=== PATIENT | female | born 1940 | race Caucasian/White ===

== ENCOUNTER 2018-04-29 21:01 | Emergency (ER) | payer OTHER ==
[2018-04-29 21:06] VITALS: BMI 18.3
--- NOTE | 2018-04-29 23:59 | PDOC ---
*Physical Exam - Vital Signs Last Vital Signs Temp Pulse Resp BP Pulse Ox 97.9 F 74 18 166/62 98 04/29/18 21:03 04/29/18 21:03 04/29/18 21:03 04/29/18 21:03 04/29/18 21:03 ED Treatment Course - LABORATORY CBC & Chemistry Diagram: 04/30/18 00:17 04/30/18 00:17 Medical Decision Making - Medical Decision Making 04/29/18 23:54 Ms Sarmiento is a 77 yo F with HTN, HLD, CAD, CVA, subclavian steal syndrome who presents to the ER with a complaint of elevated blood pressure This am, pt had funny feeling in her head No pain No chest pain, diaphoresis Spoke with neighbor who recommended that she take her blood pressure every hour Pt took blood pressure and noted it was elevated this evening Laboratory Tests 04/30/18 00:17 Creatine Kinase 104 Troponin I < 0.02 Labs nml Pt seen by Midlevel Provider under my direct supervision Ancillary studies reviewed I agree with plan as outlined by Midlevel Provider *DC/Admit/Observation/Transfer Diagnosis at time of Disposition: Paresthesia, Hypertension - Discharge Dispostion Disposition: HOME Condition at time of disposition: Stable - Referrals Referrals: Carlos Rosas MD [Primary Care Provider] - - Patient Instructions Printed Discharge Instructions: DI for High Blood Pressure Additional Instructions: Your Discharge Instructions: You must call primary care physician within 24 hours to arrange follow-up. Return to the Emergency Department with any new, persistent or worsening symptoms, for fever, chills, SOB, dizziness or any other concerning changes that may occur. - Post Discharge Activity
--- NOTE | 2018-04-30 00:06 | PDOC ---
History of Present Illness - General Chief Complaint: Blood Pressure Problem Stated Complaint: HIGH BP Time Seen by Provider: 04/29/18 23:14 History Source: Patient - History of Present Illness Initial Comments: 04/30/18 00:03 Patient is a 77 year old female with h/o HTN, NV, HLD, cardiac stents x 2, Buerger's Disease, L carotid-subclavian transposition, c/o funny feeling in her head since this morning. States it feels like water running in her head and moving. She denies any headache, neck pain, blurred vision, weakness, chest pain, shortness of breath. States she went to the nurse next door to this morning her blood pressure was checked was normal. States the nurse told her to check her blood pressure every hour which she did. States that pressure was normal until this evening when her systolics became 140s. She became concerned and decided to come to the emergency room. PMD: Dr. Rosas PMHX: as above PSOCHX: neg etoh, drug, cig ALL: NKDA GENERAL/CONSTITUTIONAL: [No fever or chills. No weakness. No weight change.] HEAD, EYES, EARS, NOSE AND THROAT: [No change in vision. No ear pain or discharge. No sore throat.] CARDIOVASCULAR: [No chest pain or shortness of breath.] RESPIRATORY: [No cough, wheezing, or hemoptysis.] GASTROINTESTINAL: [No nausea, vomiting, diarrhea or constipation. No rectal bleeding.] GENITOURINARY: [No dysuria, frequency, or change in urination.] MUSCULOSKELETAL: [No joint or muscle swelling or pain. No neck or back pain.] SKIN AND BREASTS: [No rash or easy bruising.] NEUROLOGIC: [No headache, vertigo, loss of consciousness, or loss of sensation.] PSYCHIATRIC: [No depression or anxiety.] ENDOCRINE: [No increased thirst. No abnormal weight change.] HEMATOLOGIC/LYMPHATIC: [No anemia, easy bleeding, or history of blood clots.] ALLERGIC/IMMUNOLOGIC: [No hives or skin allergy. No latex allergy.] GENERAL: [The patient is awake, alert, and fully oriented, in no acute distress. ] HEAD: [Normal with no signs of trauma.] EYES: [Pupils equal, round and reactive to light, extraocular movements intact, sclera anicteric, conjunctiva clear.] ENT: [Ears normal, nares patent, oropharynx clear without exudates. Moist mucous membranes.] NECK: [Normal range of motion, supple without lymphadenopathy, JVD, or masses.] LUNGS: [Breath sounds equal, clear to auscultation bilaterally. No wheezes, and no crackles.] HEART: [Regular rate and rhythm, normal S1 and S2 without murmur, rub.] ABDOMEN: [Soft, nontender, normoactive bowel sounds. No guarding, no rebound. No masses.] EXTREMITIES: [Normal range of motion, no edema. No clubbing or cyanosis. No cords, erythema, or tenderness.] NEUROLOGICAL: [Cranial nerves II through XII grossly intact. Normal speech, normal gait.] PSYCH: [Normal mood, normal affect.] SKIN: [Warm, Dry, normal turgor, no rashes or lesions noted.] Past History - Past Medical History Allergies/Adverse Reactions: Allergies Allergy/AdvReac Type Severity Reaction Status Date / Time No Known Allergies Allergy Verified 04/29/18 21:06 Home Medications: Ambulatory Orders Amlodipine Besylate 2.5 mg PO DAILY tablet 12/14/16 Aspirin [Aspir-Low] 81 mg PO DAILY tablet 12/14/16 Atorvastatin Calcium 80 mg PO DAILY tablet 12/14/16 Carvedilol 12.5 mg PO BID #180 tablet 12/14/16 Ezetimibe [Zetia] 10 mg PO DAILY tablet 12/14/16 Pantoprazole Sodium 20 mg PO DAILY tablet 08/03/17 Anemia: No Asthma: No Cancer: No Cardiac Disorders: Yes (mi 2007, CAD, stents) CVA: No COPD: No CHF: No Dementia: Yes Diabetes: Yes (DIET CONTROLLED) GI Disorders: No Disorders: No HTN: Yes Hypercholesterolemia: Yes Liver Disease: No Seizures: No Thyroid Disease: No - Surgical History Abdominal Surgery: No Appendectomy: Yes Cardiac Surgery: Yes (cardiac stents) Cholecystectomy: Yes Lung Surgery: No Neurologic Surgery: No Orthopedic Surgery: No - Suicide/Smoking/Psychosocial Hx Smoking History: Never smoked Have you smoked in the past 12 months: No Hx Alcohol Use: No Drug/Substance Use Hx: No Substance Use Type: None Hx Substance Use Treatment: No *Physical Exam - Vital Signs Last Vital Signs Temp Pulse Resp BP Pulse Ox 97.9 F 74 18 166/62 98 04/29/18 21:03 04/29/18 21:03 04/29/18 21:03 04/29/18 21:03 04/29/18 21:03 ED Treatment Course - LABORATORY CBC & Chemistry Diagram: 04/30/18 00:17 04/30/18 00:17 - RADIOLOGY Radiology Studies Ordered: Category Date Time Status HEAD CT WITHOUT CONTRAST [CT] Stat CT Scan 04/29/18 23:40 Ordered Medical Decision Making - Medical Decision Making 04/30/18 00:03 Patient is a 77 year old female with h/o HTN, NV, HLD, cardiac stents x 2, Buerger's Disease, L carotid-subclavian transposition, c/o funny feeling in her head since this morning. Patient's symptoms are nonspecific however, since patient is cardiac radius and is for stroke we'll get a head CT and labs. EKG sinus at 53, left axis deviation, T-wave inversion in V2 improved since last EKG in 2015. Patient Full Name: HERON NIEVES Patient Accession No: [id number] Patient : 1940 Reason for Exam: head pressure h/o cva Referring Physician: Patient Name: LIZBETH SHELBY THIS IS A PRELIMINARY REPORT FROM [facility] DATE OF SERVICE: 2018-04-30 01:24:41 IMAGES: 137 EXAM: HEAD CT WITHOUT CONTRAST HISTORY: Head pressure history CVA COMPARISON: None. FINDINGS: No obvious infiltrates. No hemorrhage. No shift or herniation. No appreciable mass. Osseous structures are intact. THIS DOCUMENT HAS BEEN ELECTRONICALLY SIGNED David Ram MD 04/30/2018 01:52 EST MMelissa. Please call [facility] [phone] ([phone]) with questions. INTERPRETING RADIOLOGIST: David Ram MD Electronically Signed: Apr 30, 2018 01:53AM EDT No other acute findings on laboratory work troponin is negative. Patient is feeling fine and would like to be discharged. I discussed the physical exam findings, ancillary test results and final diagnoses with the patient. I answered all of the patient's questions. The patient was satisfied with the care received and felt comfortable with the discharge plan and treatment plan. The Patient agrees to follow up with the primary care physician within 24-72 hours. *DC/Admit/Observation/Transfer Diagnosis at time of Disposition: Paresthesia Hypertension Qualifiers: Hypertension type: essential hypertension Qualified Code(s): I10 - Essential ( primary) hypertension - Discharge Dispostion Disposition: HOME Condition at time of disposition: Stable - Referrals Referrals: Carlos Rosas MD [Primary Care Provider] - - Patient Instructions Printed Discharge Instructions: DI for High Blood Pressure Additional Instructions: Your Discharge Instructions: You must call primary care physician within 24 hours to arrange follow-up. Return to the Emergency Department with any new, persistent or worsening symptoms, for fever, chills, SOB, dizziness or any other concerning changes that may occur. - Post Discharge Activity
[2018-04-30 00:36] LABS: EOS % 2.1 % (0-4.5); HEMATOCRIT 40.1 % (32.4-45.2); HEMOGLOBIN 13.4 GM/dL (10.7-15.3); LYMPH % 32.8 % (8-40); MCH 31.4 pg (25.7-33.7); MCHC 33.4 g/dl (32.0-36.0); MEAN CELL VOLUME 94.1 fl (80-96); MEAN PLT VOLUME 8.7 fl (7.5-11.1); MONO % 11.3 % (3.8-10.2); NEUT % 52.8 % (42.8-82.8); PLATELET COUNT 163 K/MM3 (134-434); RBC 4.26 M/mm3 (3.60-5.2); RDW 13.8 % (11.6-15.6); WHITE BLOOD COUNT 4.8 K/mm3 (4.0-10.0)
[2018-04-30 01:09] LABS: ALBUMIN 3.9 g/dl (3.4-5.0); ANION GAP 7 (8-16); BILIRUBIN,TOTAL 0.5 mg/dL (0.2-1.0); BLOOD UREA NITROGEN 19 mg/dL (7-18); CALCIUM 9.1 mg/dL (8.5-10.1); CHLORIDE 106 mmol/L (98-107); CO2 28 mmol/L (21-32); CREATININE 0.8 mg/dL (0.55-1.02); GLUCOSE,RANDOM 109 mg/dL (74-106); POTASSIUM 4.6 mmol/L (3.5-5.1); SGOT/AST 24 U/L (15-37); SGPT/ALT 34 U/L (12-78); SODIUM 141 mmol/L (136-145); TOT PROT 7.2 g/dl (6.4-8.2)
[2018-04-30 01:12] LABS: ALK PHOS 61 U/L (45-117)
[2018-04-30 01:53] VITALS: TEMP 98.4
[2018-04-30 02:52] VITALS: BP 140/68; PULSE 72
--- NOTE | 2018-04-30 22:07 | EKG ---
Test Reason : Blood Pressure : / mmHG Vent. Rate : 053 BPM Atrial Rate : 053 BPM P-R Int : 208 ms QRS Dur : 086 ms QT Int : 422 ms P-R-T Axes : 081 -70 056 degrees QTc Int : 395 ms SINUS BRADYCARDIA POSSIBLE LEFT ATRIAL ENLARGEMENT LEFT AXIS DEVIATION PULMONARY DISEASE PATTERN SEPTAL INFARCT , AGE UNDETERMINED ABNORMAL ECG WHEN COMPARED WITH ECG OF 19-NOV-2016 08:47, SEPTAL INFARCT IS NOW PRESENT T WAVE INVERSION NO LONGER EVIDENT IN INFERIOR LEADS T WAVE INVERSION LESS EVIDENT IN ANTEROLATERAL LEADS QT HAS SHORTENED Confirmed by ROHAN CASTILLO MD ([id number]) on 04/30/2018 10:07:41 PM Referred By: Confirmed By:ROHAN CASTILLO MD
== END 2018-04-30 02:43 | disposition home or self-care (01) ==
LOC: JER 21:01
DX: I10 Essential (primary) hypertension (principal); I25.10 Atherosclerotic heart disease of native coronary artery without angina pectoris; Z95.5 Presence of coronary angioplasty implant and graft; I25.2 Old myocardial infarction; E11.9 Type 2 diabetes mellitus without complications; E78.00 Pure hypercholesterolemia, unspecified; Z86.73 Personal history of transient ischemic attack (TIA), and cerebral infarction without residual deficits; Z90.49 Acquired absence of other specified parts of digestive tract
CPT/HCPCS: 36415; 70450-TC; 80053; 82550; 84484; 85025; 93005; 93010; 99282-25

== ENCOUNTER 2020-06-08 11:58 | Observation (INO) | payer OTHER ==
--- NOTE | 2020-06-08 12:07 | PDOC ---
History of Present Illness - General Stated Complaint: CHEST PAIN Time Seen by Provider: 06/08/20 12:06 - History of Present Illness Initial Comments: History limited 2/2 dementia, obtained from pt and EMS Rachell Sarmiento is a 80 y/o female with PMH significant for HTN, HLD, CAD, CVA, subclavean steal syndrome, PCI (stent), angina presenting today with chest heaviness. Reports that this started this morning. No pain radiation. No dizziness/palpitations/shortness of breath. Non reproducible. Non exertional. No abd pain/leg swelling. No urinary or bowel symptoms. Has been seen for prior chest pains before. SocHx: lives with daughter Past History - Medical History Allergies/Adverse Reactions: Allergies Allergy/AdvReac Type Severity Reaction Status Date / Time No Known Allergies Allergy Verified 04/29/18 21:06 Home Medications: Ambulatory Orders Amlodipine Besylate 2.5 mg PO DAILY tablet 12/14/16 Aspirin [Aspir-Low] 81 mg PO DAILY tablet 12/14/16 Atorvastatin Calcium 80 mg PO DAILY tablet 12/14/16 Carvedilol 12.5 mg PO BID #180 tablet 12/14/16 Ezetimibe [Zetia] 10 mg PO DAILY tablet 12/14/16 Clopidogrel Bisulfate [Plavix] 75 mg PO DAILY 06/09/20 Quetiapine Fumarate [Seroquel -] 25 mg PO HS 06/09/20 Anemia: No Asthma: No Cancer: No Cardiac Disorders: Yes (mi 2007, CAD, stents) CVA: No COPD: No CHF: No Dementia: Yes Diabetes: Yes (DIET CONTROLLED) GI Disorders: No Disorders: No HTN: Yes Hypercholesterolemia: Yes Liver Disease: No Seizures: No Thyroid Disease: No - Surgical History Abdominal Surgery: No Appendectomy: Yes Cardiac Surgery: Yes (cardiac stents) Cholecystectomy: Yes Lung Surgery: No Neurologic Surgery: No Orthopedic Surgery: No - Psycho-Social/Smoking History Smoking History: Never smoked Have you smoked in the past 12 months: No Cardiac Specific PMH - Complaint Specific PMHX Pacemaker: No Review of Systems - Review of Systems Comments:: GENERAL/CONSTITUTIONAL: No fever or chills. No weakness._ HEAD, EYES, EARS, NOSE AND THROAT: No change in vision. No change in hearing. No sore throat._ CARDIOVASCULAR: Reports chest heaviness. No shortness of breath_ RESPIRATORY: Denies cough, hemoptysis_ GASTROINTESTINAL: No nausea, vomiting, diarrhea or constipation._ GENITOURINARY: No dysuria, frequency, or change in urination._ MUSCULOSKELETAL: No joint or muscle swelling or pain. No neck or back pain._ SKIN: No rash_ NEUROLOGIC: No headache, vertigo, loss of consciousness, or change in strength/sensation._ ENDOCRINE: No increased thirst. No abnormal weight change_ ALLERGIC/IMMUNOLOGIC: No hives or skin allergy._ *Physical Exam - Vital Signs Last Vital Signs Temp Pulse Resp BP Pulse Ox 98.2 F 75 18 142/77 99 06/09/20 09:58 06/09/20 09:58 06/09/20 09:58 06/09/20 09:58 06/09/20 09:58 - Physical Exam GENERAL: Awake, alert, and oriented, in no acute distress_ HEAD: No signs of trauma, normocephalic, atraumatic _ EYES: PERRLA, EOMI, sclera anicteric, conjunctiva clear_ ENT: Hearing grossly normal, nares patent, oropharynx clear without exudates. No uvular deviation. Moist mucosa_ NECK: Normal ROM, supple, no lymphadenopathy, JVD, or masses_ LUNGS: No distress, speaks in full sentences, clear to auscultation bilaterally _ CHEST: No TTP, trauma, or obvious bruising or rash. HEART: Regular rate and rhythm, normal S1 and S2, no murmurs appreciated, peripheral pulses normal and equal bilaterally._ ABDOMEN: Soft, nontender, normoactive bowel sounds. No guarding, no rebound. No masses_ EXTREMITIES: Normal inspection, Normal range of motion, no edema. No clubbing or cyanosis_ NEUROLOGICAL: Cranial nerves II through XII grossly intact. Normal speech, normal gait, no focal sensorimotor deficits _ SKIN: Warm, Dry, normal turgor, no rashes or lesions noted_ Heart Score/ECG Review - History History: Slightly suspicious - Electrocardiogram EKG: Normal - Age Age: >/= 65 - Risk Factors Risk Factors Heart Score: Yes Hx Hypercholesterolemia, Yes Hx Hypertension, Yes Hx Diabetes Based on the list above the patient has:: >/=3 risk factors or Hx atherosclerotic disease - Troponin Troponin: </= normal limit - Score Heart Score - Total: 4 ED Treatment Course - LABORATORY CBC & Chemistry Diagram: 06/09/20 10:20 06/09/20 10:20 - ADDITIONAL ORDERS Additional order review: 06/08/20 12:50 RBC 4.35 MCV 95.3 MCHC 33.2 RDW 14.0 MPV 9.3 D Neutrophils % 58.7 Lymphocytes % 25.0 D Monocytes % 12.1 H Eosinophils % 3.0 Basophils % 1.2 - RADIOLOGY Radiology Studies Ordered: Category Date Time Status CHEST X-RAY PORTABLE* [RAD] Stat Radiology 06/08/20 12:14 Completed Medical Decision Making - Medical Decision Making 80F with multiple risk factors presenting today with chest heaviness that started this morning. HEART score 4. -labs -ekg -cxr -tele obs given pt's age and risk factors 06/08/20 12:26 EKG NSR, 62 bpm, LAD (seen on prior EKG in 2018), no ST elevation, QTc 406. 06/08/20 13:57 CXR shows no acute chest pathology. 06/08/20 14:14 Labs reviewed. Laboratory Tests 06/08/20 06/08/20 06/08/20 12:50 12:50 12:50 WBC 4.7 RBC 4.35 Hgb 13.8 Hct 41.5 MCV 95.3 MCH 31.6 MCHC 33.2 RDW 14.0 Plt Count 146 D MPV 9.3 D Absolute Neuts (auto) 2.7 Neutrophils % 58.7 Lymphocytes % 25.0 D Monocytes % 12.1 H Eosinophils % 3.0 Basophils % 1.2 Nucleated RBC % 0 PT with INR 11.00 INR 0.93 PTT (Actin FS) 27.7 Sodium 143 Potassium 4.0 Chloride 108 H Carbon Dioxide 29 Anion Gap 6 L BUN 20.1 H Creatinine 0.8 Est GFR (CKD-EPI)AfAm 80.70 Est GFR (CKD-EPI)NonAf 69.63 Random Glucose 109 H Calcium 9.2 Total Bilirubin 0.7 AST 25 ALT 34 Alkaline Phosphatase 68 Creatine Kinase 98 Troponin I < 0.02 Total Protein 6.9 Albumin 3.7 06/08/20 14:23 D/w Dr. Keith who accepts the patient for tele obs. Discharge - Discharge Information Problems reviewed: Yes Clinical Impression/Diagnosis: Chest pain Condition: Stable - Admission Yes - Follow up/Referral - Patient Discharge Instructions - Post Discharge Activity
[2020-06-08 13:19] VITALS: BMI 18.8
[2020-06-08 13:30] LABS: BASO % 1.2 % (0-2.0); HEMATOCRIT 41.5 % (32.4-45.2); HEMOGLOBIN 13.8 GM/dL (10.7-15.3); MCH 31.6 pg (25.7-33.7); MCHC 33.2 g/dl (32.0-36.0); MEAN CELL VOLUME 95.3 fl (80-96); MEAN PLT VOLUME 9.3 fl (7.5-11.1); MONO % 12.1 % (3.8-10.2); NEUT % 58.7 % (42.8-82.8); PLATELET COUNT 146 K/MM3 (134-434); RBC 4.35 M/mm3 (3.60-5.2); WHITE BLOOD COUNT 4.7 K/mm3 (4.0-10.0)
[2020-06-08 13:38] LABS: INR 0.93 (0.83-1.09)
[2020-06-08 13:40] LABS: ACTIVATED PTT 27.7 SECONDS (25.2-36.5)
[2020-06-08 14:02] LABS: ALBUMIN 3.7 g/dl (3.4-5.0); ALK PHOS 68 U/L (45-117); ANION GAP 6 MMOL/L (8-16); BILIRUBIN,TOTAL 0.7 mg/dL (0.2-1); BLOOD UREA NITROGEN 20.1 mg/dL (7-18); CALCIUM 9.2 mg/dL (8.5-10.1); CHLORIDE 108 mmol/L (98-107); CO2 29 mmol/L (21-32); CREATININE 0.8 mg/dL (0.55-1.3); GLUCOSE,RANDOM 109 mg/dL (74-106); SGOT/AST 25 U/L (15-37); SGPT/ALT 34 U/L (13-61); SODIUM 143 mmol/L (136-145); TOT PROT 6.9 g/dl (6.4-8.2)
--- NOTE | 2020-06-08 14:28 | PDOC ---
Documentation entered by Spenser Rojo SCRIBE, acting as scribe for David Robertson MD. David Robertson MD: This documentation has been prepared by the Darrel mitchell Nirvannie, SCRIBE, under my direction and personally reviewed by me in its entirety. I confirm that the documentation accurately reflects all work, treatment, procedures, and medical decision making performed by me. Attending Attestation - Resident Resident Name: MarieWaqar - ED Attending Attestation I have performed the following: I have examined & evaluated the patient, The case was reviewed & discussed with the resident, I agree w/resident's findings & plan, Exceptions are as noted - HPI HPI: 06/08/20 13:11 The patient is an 80 year old female with a significant past medical history of HTN, HLD, CAD ([place] s/p cardiac stenting x2), CVA, subclavian steal syndrome, angina, Buerger's Disease, and dementia who presents to the ED with 1 day of chest heaviness. As per patient, her symptoms onset while at rest this morning without any alleviating or exacerbating factors. She denies any pleuritic components or lower extremity edema. History is limited secondary to patients dementia. Allergies: NKDA Primary Care Physician: Dr. Rosas - Physicial Exam PE: 06/08/20 14:33 See resident exam - Medical Decision Making 06/08/20 14:33 80 F with chest heaviness. - Labs, trop - CXR - Admit tele Discharge - Discharge Information Problems reviewed: Yes Clinical Impression/Diagnosis: Chest pain Qualifiers: Chest pain type: precordial pain Qualified Code(s): R07.2 - Precordial pain Condition: Stable - Follow up/Referral - Patient Discharge Instructions - Post Discharge Activity
[2020-06-08] MEDS ORDERED: ASPIRIN COATED 81 MG TABLET.EC ONE (15:02)
[2020-06-08] MEDS: ASPIRIN COATED 81 MG TABLET.EC PO SCH (15:03)
--- NOTE | 2020-06-08 20:32 | HP ---
CHIEF COMPLAINT: chest pain HISTORY OF PRESENT ILLNESS: 80 F h/o CAD s/p stent, HTN, HLD, GERD, HTG, presents with episode of SOB w/ chest pain in AM lasting about 10 mins. Patient endorses after waking up she was dressing up to go to tenriism when she suddenly felt SOB accompanied with L sided chest pressure/discomfort, which prompted her to notify EMS. Patient denies palpitations/syncope/cough/fever/chills. Dneies recent travel/COVID exposure. Endorses normally having a good ET. ER course was notable for: (1) Trops neg x1 (2) EKG neg. (3) Tele obs Recent Travel: denies PAST MEDICAL HISTORY: as above PAST SURGICAL HISTORY: denies Social History: denies x3 Allergies No Known Allergies Allergy (Verified 04/29/18 21:06) HOME MEDICATIONS: Home Medications Medication Instructions Recorded Amlodipine Besylate 2.5 mg PO DAILY tablet 12/14/16 Aspirin [Aspir-Low] 81 mg PO DAILY tablet 12/14/16 Atorvastatin Calcium 80 mg PO DAILY tablet 12/14/16 Carvedilol 12.5 mg PO BID #180 tablet 12/14/16 Ezetimibe [Zetia] 10 mg PO DAILY tablet 12/14/16 Pantoprazole Sodium 20 mg PO DAILY tablet 08/03/17 PHYSICAL EXAMINATION Vital Signs - 24 hr 06/08/20 06/08/20 12:05 17:57 Temperature 98.2 F Pulse Rate 72 Pulse Rate [ 75 Right] Respiratory 18 15 Rate Blood Pressure 176/61 H Blood Pressure 166/75 [Right Arm] O2 Sat by Pulse 98 98 Oximetry (%) GENERAL: calm, pleasant, AAox3 HEENT: NC/aT, EOMI, YOSI, neck supple, DRy MM LUNGS: Breath sounds equal, clear to auscultation bilaterally. No wheezes, and no crackles. No accessory muscle use. HEART: Regular rate and rhythm, normal S1 and S2 without murmur, rub or gallop. ABDOMEN: Soft, nontender, not distended, normoactive bowel sounds, no guarding, no rebound, no masses. No hepatomegaly or splenomegaly. MUSCULOSKELETAL: Normal range of motion at all joints. No bony deformities or tenderness. No CVA tenderness. UPPER EXTREMITIES: 2+ pulses, warm, well-perfused. No cyanosis. No clubbing. No peripheral edema. LOWER EXTREMITIES: 2+ pulses, warm, well-perfused. No calf tenderness. No peripheral edema. NEUROLOGICAL: Cranial nerves II-XII intact. Normal speech. Normal gait. PSYCHIATRIC: Cooperative. Good eye contact. Appropriate mood and affect. SKIN: Warm, dry, normal turgor, no rashes or lesions noted, normal capillary refill. Laboratory Results - last 24 hr 06/08/20 06/08/20 06/08/20 12:50 12:50 12:50 WBC 4.7 RBC 4.35 Hgb 13.8 Hct 41.5 MCV 95.3 MCH 31.6 MCHC 33.2 RDW 14.0 Plt Count 146 D MPV 9.3 D Absolute Neuts (auto) 2.7 Neutrophils % 58.7 Lymphocytes % 25.0 D Monocytes % 12.1 H Eosinophils % 3.0 Basophils % 1.2 Nucleated RBC % 0 PT with INR 11.00 INR 0.93 PTT (Actin FS) 27.7 Sodium 143 Potassium 4.0 Chloride 108 H Carbon Dioxide 29 Anion Gap 6 L BUN 20.1 H Creatinine 0.8 Est GFR (CKD-EPI)AfAm 80.70 Est GFR (CKD-EPI)NonAf 69.63 Random Glucose 109 H Calcium 9.2 Total Bilirubin 0.7 AST 25 ALT 34 Alkaline Phosphatase 68 Creatine Kinase 98 Troponin I < 0.02 Total Protein 6.9 Albumin 3.7 Home Medications Medication Instructions Recorded Amlodipine Besylate 2.5 mg PO DAILY tablet 12/14/16 Aspirin [Aspir-Low] 81 mg PO DAILY tablet 12/14/16 Atorvastatin Calcium 80 mg PO DAILY tablet 12/14/16 Carvedilol 12.5 mg PO BID #180 tablet 12/14/16 Ezetimibe [Zetia] 10 mg PO DAILY tablet 12/14/16 Pantoprazole Sodium 20 mg PO DAILY tablet 08/03/17 Current Medications Generic Name Dose Route Start Last Admin Trade Name Freq PRN Reason Stop Dose Admin Amlodipine Besylate 5 mg 06/09/20 10:00 Norvasc - PO DAILY JUANY Aspirin 81 mg 06/08/20 14:45 06/08/20 15:03 Ecotrin - PO 81 mg DAILY JUANY Administration Atorvastatin Calcium 80 mg 06/08/20 22:00 Lipitor - PO HS JUANY Carvedilol 12.5 mg 06/08/20 22:00 Coreg - PO BID JUANY Ezetimibe 10 mg 06/09/20 10:00 Zetia - PO DAILY [facility] Enoxaparin Sodium 40 mg 06/09/20 10:00 Lovenox - SQ DAILY [facility] Pantoprazole Sodium 20 mg 06/09/20 10:00 Protonix - PO DAILY [facility] ASSESSMENT/PLAN: 80 F Angina pectoris HTN HLD CAD s/p stent HTG Beurger's disease Subclavian steel syndrome GERD ?anxiety Plan: Obtain trops x2 w/ EKG, order Echo Will likely need stress testing to evaluate patency of stents Cardiology evaluation Tele observation DVT ppx: Lovenox SC Visit type - Emergency Visit Emergency Visit: Yes ED Registration Date: 06/08/20 Care time: The patient presented to the Emergency Department on the above date and was hospitalized for further evaluation of their emergent condition. - New Patient This patient is new to me today: Yes Date on this admission: 06/08/20 - Critical Care Critical Care patient: No
[2020-06-08 21:37] LABS: CHOLESTEROL 150 mg/dL (50-200); HDL CHOLESTEROL 85 mg/dL (40-60); LDL CHOLESTEROL (ONLY SJRH) 52 mg/dL (5-100); N-TERMINAL BNP 434.8 pg/ml (5-450); TRIGLYCERIDES 59 mg/dL (0-150)
[2020-06-08] MEDS ORDERED: ATORVASTATIN CA 80 MG TABLET (FP) PO SCH (22:00)
[2020-06-08] MEDS ORDERED: ATORVASTATIN CA 80 MG TABLET (FP) ONE (22:52)
[2020-06-08] MEDS ORDERED: CARVEDILOL 12.5 MG TABLET (FP) ONE (22:52)
[2020-06-08] MEDS: CARVEDILOL 12.5 MG TABLET (FP) PO SCH (22:56)
--- NOTE | 2020-06-09 09:39 | EKG ---
Test Reason : Blood Pressure : / mmHG Vent. Rate : 062 BPM Atrial Rate : 062 BPM P-R Int : 162 ms QRS Dur : 082 ms QT Int : 400 ms P-R-T Axes : 071 -67 053 degrees QTc Int : 406 ms NORMAL SINUS RHYTHM LEFT AXIS DEVIATION IRBBB/RVH SEPTAL INFARCT (CITED ON OR BEFORE 28-OCT-2016) ABNORMAL ECG WHEN COMPARED WITH ECG OF 30-APR-2018 02:20, No significant changes Confirmed by Kendy Barney ([id number]) on 06/09/2020 9:38:37 AM Referred By: Confirmed By:Kendy Barney
--- NOTE | 2020-06-09 09:52 | CON.CARD ---
Consult Consult Specialty:: Cardiology Referred by:: Hospitalist Medicine Reason for Consultation:: Chest pain - History of Present Illness Chief Complaint: Chest pain History of Present Illness: 80 yo female h/o peripheral artery disease with distal aortic occlusion, left subclavian->carotid bypass, CAD s/p NSTEMI, LORENZO RCA, HTN, type 2 DM, hyperlipidemia since last visit 05/06/2020 presented to ED with left-sided chest tightness and associated dyspnea, w/o near or true syncope, palpitations, orthopnea, PND or LE edema, currently chest-pain free. - History Source History Provided By: Patient Limitations to Obtaining History: No Limitations - Past Medical History Cardio/Vascular: Yes: CAD, HTN, Hyperlipdemia, RI, Other Gastrointestinal: Yes: Other Hepatobiliary: Yes: Other Endocrine: Yes: Diabetes Mellitus - Past Surgical History Past Surgical History: Yes: Stent - Alcohol/Substance Use Hx Alcohol Use: No - Smoking History Smoking history: Never smoked Have you smoked in the past 12 months: No - Social History Usual Living Arrangement: With Significant Other Home Medications - Allergies Allergies/Adverse Reactions: Allergies Allergy/AdvReac Type Severity Reaction Status Date / Time No Known Allergies Allergy Verified 04/29/18 21:06 - Home Medications Home Medications: Ambulatory Orders Amlodipine Besylate 2.5 mg PO DAILY tablet 12/14/16 Aspirin [Aspir-Low] 81 mg PO DAILY tablet 12/14/16 Atorvastatin Calcium 80 mg PO DAILY tablet 12/14/16 Carvedilol 12.5 mg PO BID #180 tablet 12/14/16 Ezetimibe [Zetia] 10 mg PO DAILY tablet 12/14/16 Clopidogrel Bisulfate [Plavix] 75 mg PO DAILY 06/09/20 Quetiapine Fumarate [Seroquel -] 25 mg PO HS 06/09/20 Review of Systems - Review of Systems Cardiovascular: reports: Chest Pain, Shortness of Breath Vital Signs: Vital Signs Temperature 97.8 F 06/09/20 06:48 Pulse Rate 61 06/09/20 06:48 Respiratory Rate 17 06/09/20 06:48 Blood Pressure 116/36 L 06/09/20 06:48 O2 Sat by Pulse Oximetry (%) 96 06/09/20 06:48 Constitutional: Yes: No Distress, Calm, Thin Neck: Yes: Supple Respiratory: Yes: Regular, CTA Bilaterally Gastrointestinal: Yes: Normal Bowel Sounds, Soft Cardiovascular: Yes: Regular Rate and Rhythm Heart Sounds: Yes: S1, S2 Edema: No - Other Data Labs, Other Data: CBC, BMP 06/08/20 12:50 06/08/20 12:50 INR, PTT INR 0.93 (0.83-1.09) 06/08/20 12:50 Troponin, BNP 06/08/20 12:50 Troponin I < 0.02 B-Natriuretic Peptide 434.8 Troponin, BNP 06/08/20 12:50 Troponin I < 0.02 B-Natriuretic Peptide 434.8 NSR @ 62 IRBBB, LAD Prior Cardiac Procedures: PTCA with Stent Ejection Fraction %: LVEF > or = 40 % Imaging - Results Chest X-ray: Report Reviewed (NAD) Problem List - Problems (1) Chest pain Code(s): R07.9 - CHEST PAIN, UNSPECIFIED Qualifiers: Chest pain type: precordial pain Qualified Code(s): R07.2 - Precordial pain (2) Buergers disease Code(s): I73.1 - THROMBOANGIITIS OBLITERANS [BUERGER'S DISEASE] (3) Coronary artery disease Code(s): I25.10 - ATHSCL HEART DISEASE OF [place] CORONARY ARTERY W/O ANG PCTRS Qualifiers: Coronary Disease-Associated Artery/Lesion type: [place] artery [place] vs. transplanted heart: cherokee heart Associated angina: with unstable angina Qualified Code(s): I25.110 - Atherosclerotic heart disease of [place] coronary artery with unstable angina pectoris (4) Diabetes mellitus Code(s): E11.9 - TYPE 2 DIABETES MELLITUS WITHOUT COMPLICATIONS Qualifiers: Diabetes mellitus type: type 2 Diabetes mellitus detention insulin use: without continuous churn buttermaker use Diabetes mellitus complication status: without c omplication Qualified Code(s): E11.9 - Type 2 diabetes mellitus without c omplications (5) Hyperlipidemia Code(s): E78.5 - HYPERLIPIDEMIA, UNSPECIFIED Qualifiers: Hyperlipidemia type: pure hypercholesterolemia Qualified Code(s): E78.00 - Pure hypercholesterolemia, unspecified; E78.0 - Pure hypercholesterolemia (6) Hypertension Code(s): I10 - ESSENTIAL (PRIMARY) HYPERTENSION Qualifiers: Hypertension type: essential hypertension Qualified Code(s): I10 - Essential (primary) hypertension (7) 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, greater than 8 weeks Code(s): I25.2 - OLD MYOCARDIAL INFARCTION (8) S/P right coronary artery (RCA) stent placement Code(s): Z95.5 - PRESENCE OF CORONARY ANGIOPLASTY IMPLANT AND GRAFT (9) Subclavian steal syndrome Code(s): G45.8 - OTH TRANSIENT CEREBRAL ISCHEMIC ATTACKS AND RELATED SYND Assessment/Plan 02/03/2017 Echo: Normal LV size and fxn, mild TR, tr-mild MR 10/29/2016 Echo: Moderate LV systolic dysfunction with severe HK pf mid anteroseptum, apical anterior, apex and inferior tanner, mild TR 03/15/2017 ETT: Negative ischemia 87% MPHR 10/29/2016 P-Myoview Moderate zone of apical infarct with mild yassine-infarct ischemia. dyskinetic apex LVEF 57% 04/14/2016 Normal MPI, normal LVEF 83% 1. Chest pain with underlying CAD post RI, PCI (stent), angina pectoris 2. PAD with history of distal aortic occlusion and left subclavian -> carotid bypass 3. LV diastolic dysfunction euvolemic 4. HTN 5. DM (diet controlled) 6. Dyslipidemia IIb 7. Dizziness and syncope, possibly temporally related to silent LAD infarct PLAN: 1. Ruling out recurrent RI 2. Continue ASA 81 qd, Plavix 75 qd, benazepril 10 qd, Lipitor 80 qd, Zetia 10 qd, carvedilol 12.5 bid, and Norvasc 2.5 qd 3. Encourage ambulation, if continued sxs despite optimal medical therapy, would consider coronary angiogram to assess severity of CAD 4. Once ruled out for RI, march d/c with f/u in office for further CV evaluation 5. Thank you for consultative opportunity
[2020-06-09] MEDS ORDERED: EZETIMIBE 10 MG TABLET (FP) PO SCH (10:00)
[2020-06-09] MEDS ORDERED: amLODIPine BESYLATE 5 MG TABLET (FP) PO SCH (10:00)
[2020-06-09] MEDS ORDERED: PANTOPRAZOLE 20 MG TABLET PO SCH (10:00)
[2020-06-09] MEDS ORDERED: ENOXAPARIN NA (PORCINE) 40 MG/0.4 ML DISP.SYRIN SQ SCH (10:00)
--- NOTE | 2020-06-09 10:06 | ECHO ---
[place] [address] Name: LIZBETH SHELBY Exam:Adult Echocardiogram : 1940 Performed By: Roxann Hopkins Study Date: 06/09/2020 08:02 AM Patient Status: Inpatient Reason For Study: Chest pain Height: 64 in Weight: 110 lb BSA: 1.5 m2 MMode/2D Measurements & Calculations IVSd: 0.74 cm Ao root diam: 2.8 cm EDV(Teich): 74.4 ml LVOT diam: 2.0 cm LVIDd: 4.1 cm LA dimension: 2.4 cm ESV(Teich): 19.9 ml LVIDs: 2.4 cm LVPWd: 0.81 cm LAV (MOD-bp): 38.5 ml Doppler Measurements & Calculations MV E max sushant: 70.8 cm/sec Ao V2 max: 95.0 cm/sec LV V1 max P.4 mmHg TR max sushant: 252.5 cm/sec MV A max sushant: 52.9 cm/sec Ao max P.6 mmHg LV V1 max: 58.7 cm/sec TR max P.6 mm Hg MV E/A: 1.3 MV dec time: 0.18 sec MAXIMUS(V,D): 1.9 cm2 PA V2 max: 62.4 cm/sec Med Peak E' Sushant: 7.3 cm/sec PI Vmax: 139.8 cm/sec PA max P.6 mmHg Med E/e': 9.7 Lat Peak E' Sushant: 7.9 cm/sec Lat E/e': 8.9 Procedure Study Quality: Fair. Left Ventricle The left ventricular size, thickness and function are normal. Ejection Fraction = 55%. Right Ventricle The right ventricle is normal in size and function. Atria Normal left and right atrial size and function. Mitral Valve There is mild mitral annular calcification. There is no mitral regurgitation noted. Tricuspid Valve The tricuspid valve is normal. There is mild tricuspid regurgitation. Right ventricular systolic pres sure is normal. Aortic Valve There is mild aortic sclerosis.;. Pulmonic Valve The pulmonic valve is not well seen, but is grossly normal. Trace pulmonic valvular regurgitation. Great Vessels The aortic root is normal size. Pericardium/Pleura There is no pericardial effusion. Interpretation Summary LV: Normal size and function, EF 55% RV: Normal Mildly sclerotic aortic valve Mildly calcified mitral valve annulus. Reading Physician: Kendy Barney 06/09/2020 10:05 AM
[2020-06-09] MEDS: ASPIRIN COATED 81 MG TABLET.EC PO SCH (10:33)
[2020-06-09] MEDS: CARVEDILOL 12.5 MG TABLET (FP) PO SCH (10:34)
[2020-06-09 10:41] LABS: BASO % 1.6 % (0-2.0); EOS % 2.2 % (0-4.5); HEMOGLOBIN 13.6 GM/dL (10.7-15.3); LYMPH % 17.9 % (8-40); MCH 31.2 pg (25.7-33.7); MCHC 33.2 g/dl (32.0-36.0); MEAN CELL VOLUME 94.1 fl (80-96); MEAN PLT VOLUME 8.8 fl (7.5-11.1); MONO % 8.6 % (3.8-10.2); NEUT % 69.7 % (42.8-82.8); PLATELET COUNT 153 K/MM3 (134-434); RBC 4.36 M/mm3 (3.60-5.2); RDW 13.9 % (11.6-15.6); WHITE BLOOD COUNT 5.1 K/mm3 (4.0-10.0)
[2020-06-09 11:17] LABS: ANION GAP 2 MMOL/L (8-16); BLOOD UREA NITROGEN 14.9 mg/dL (7-18); CALCIUM 8.7 mg/dL (8.5-10.1); CHLORIDE 106 mmol/L (98-107); CO2 34 mmol/L (21-32); CREATININE 0.8 mg/dL (0.55-1.3); GLUCOSE,RANDOM 133 mg/dL (74-106); POTASSIUM 3.7 mmol/L (3.5-5.1); SODIUM 142 mmol/L (136-145)
--- NOTE | 2020-06-09 12:11 | PN ---
Teaching Attending Note Name of Resident: Aleksander Ward ATTENDING PHYSICIAN STATEMENT I saw and evaluated the patient. I reviewed the resident's note and discussed the case with the resident. I agree with the resident's findings and plan as documented. SUBJECTIVE: Seen and examined at bedside. Patient reports chest pressure has resolved. Denies palpitations, shortness of breath, chest pain. Troponins negative x2 OBJECTIVE: Last Vital Signs Temp Pulse Resp BP Pulse Ox 98.2 F 75 18 142/77 99 06/09/20 09:58 06/09/20 09:58 06/09/20 09:58 06/09/20 09:58 06/09/20 09:58 PE: per resident note Labs/Imaging: reviewed ASSESSMENT AND PLAN: 80-year-old female history of peripheral artery disease with distal aortic occlusion, CABG, CAD status post NSTEMI, hypertension, diabetes, hyperlipidemia presents with chest tightness and dyspnea. EKG without acute changes. Admitted for rule out ACS #Chest pain, rule out ACS. Cardiology on board: Appreciate recommendations Telemetry Troponins negative x2, follow-up third Continue aspirin, statin EKG without acute ST changes. #History of PAD Continue aspirin, statin #Hypertension Continue benazepril, carvedilol, Norvasc
--- NOTE | 2020-06-09 14:21 | DS ---
Physical Exam: SUBJECTIVE: Patient seen and examined at bedside. The patient said that she feels fine. The patient denied fever/chills, shortness of breath, chest pain, nausea/vomiting, fatigue, muscle aches, cough, sore throat, and runny nose. OBJECTIVE: Vital Signs Period Temp Pulse Resp BP Sys/Gómez Pulse Ox Last 24 Hr 97.8 F-98.2 F 54-75 14-18 111-166/36-77 96-99 PHYSICAL EXAM GENERAL: The patient is awake, alert, and fully oriented, in no acute distress. HEAD: Normal with no signs of trauma. EYES: Extraocular movements intact. ENT: Ears normal, nares patent, oropharynx clear without exudates, moist mucous membranes. NECK: Trachea midline, full range of motion, supple. LUNGS: Breath sounds equal, clear to auscultation bilaterally, no wheezes, no crackles, no accessory muscle use. HEART: Regular rate and rhythm, S1, S2 without murmur, rub or gallop. ABDOMEN: Soft, nontender, nondistended, normoactive bowel sounds, no guarding, no rebound, no masses. EXTREMITIES: 2+ pulses, warm, well-perfused, no edema. NEUROLOGICAL: Normal speech, gait not observed. PSYCH: Normal mood, normal affect. SKIN: Warm, dry, normal turgor, no rashes or lesions noted. LABS Laboratory Results - last 24 hr 06/08/20 06/09/20 06/09/20 12:50 10:20 10:20 WBC 5.1 RBC 4.36 Hgb 13.6 Hct 41.0 MCV 94.1 MCH 31.2 MCHC 33.2 RDW 13.9 Plt Count 153 MPV 8.8 Absolute Neuts (auto) 3.6 Neutrophils % 69.7 Lymphocytes % 17.9 D Monocytes % 8.6 Eosinophils % 2.2 Basophils % 1.6 Nucleated RBC % 0 Sodium 143 142 Potassium 4.0 3.7 Chloride 108 H 106 Carbon Dioxide 29 34 H Anion Gap 6 L 2 L BUN 20.1 H 14.9 Creatinine 0.8 0.8 Est GFR (CKD-EPI)AfAm 80.70 80.70 Est GFR (CKD-EPI)NonAf 69.63 69.63 Random Glucose 109 H 133 H Calcium 9.2 8.7 Total Bilirubin 0.7 AST 25 ALT 34 Alkaline Phosphatase 68 Creatine Kinase 98 Troponin I < 0.02 < 0.02 B-Natriuretic Peptide 434.8 Total Protein 6.9 Albumin 3.7 Triglycerides 59 Cholesterol 150 Total LDL Cholesterol 52 HDL Cholesterol 85 H TSH 0.75 06/09/20 13:03 WBC RBC Hgb Hct MCV MCH MCHC RDW Plt Count MPV Absolute Neuts (auto) Neutrophils % Lymphocytes % Monocytes % Eosinophils % Basophils % Nucleated RBC % Sodium Potassium Chloride Carbon Dioxide Anion Gap BUN Creatinine Est GFR (CKD-EPI)AfAm Est GFR (CKD-EPI)NonAf Random Glucose Calcium Total Bilirubin AST ALT Alkaline Phosphatase Creatine Kinase Troponin I < 0.02 B-Natriuretic Peptide Total Protein Albumin Triglycerides Cholesterol Total LDL Cholesterol HDL Cholesterol TSH HOSPITAL COURSE: Date of Admission:06/08/20 80 year old female patient with past medical history that includes CAD s/p PCI, HTN, HLD, GERD, CVA, Subclavian steal syndrome, Buergers Disease, Angina, Dementia, who presented to the ED due to shortness of breath and left sided chest pressure with no pain that lasted about 10 minutes. ECG showed no acute changes. Troponins x3 were negative. An ECHO and Chest X-Ray were also negative. The patient was instructed to follow up with an outpatient Financial Administrative Assistant. Date of Discharge: 06/09/20 Minutes to complete discharge: 40 Discharge Summary Problems reviewed: Yes Reason For Visit: CHEST PAIN Condition: Stable - Instructions Diet, Activity, Other Instructions: You were admitted to the hospital for chest pain. While in the hospital, we evaluated you with lab work, blood work, imaging including Echocardiogram and EKG of your heart. We found that your symptoms may or may not have been caused by your heart. Considering your cardiac history, we had our Financial Administrative Assistant evaluate you. We treated you with medications and your symptoms improved. Follow ups Please take all your medications as prescribed Please follow up with your primary care physician within 1 week Please follow up with the Financial Administrative Assistant, Dr. Corley ([phone]) within 1 week for further evaluation. Return to the emergency room, if you experience worsening of your symptoms, chest pain, abdominal pain or any worsening of your condition. Referrals: Carlos Rosas MD [Primary Care Provider] - 1 Week Cristobal Colón MD [Staff Physician] - 1 Week Disposition: HOME - Home Medications Comprehensive Discharge Medication List: Ambulatory Orders Amlodipine Besylate 2.5 mg PO DAILY tablet 12/14/16 Aspirin [Aspir-Low] 81 mg PO DAILY tablet 12/14/16 Atorvastatin Calcium 80 mg PO DAILY tablet 12/14/16 Carvedilol 12.5 mg PO BID #180 tablet 12/14/16 Ezetimibe [Zetia] 10 mg PO DAILY tablet 12/14/16 Clopidogrel Bisulfate [Plavix] 75 mg PO DAILY 06/09/20 Quetiapine Fumarate [Seroquel -] 25 mg PO HS 06/09/20 This patient is new to me today: Yes Date on this admission: 06/10/20 Emergency Visit: Yes ED Registration Date: 06/08/20 Care time: The patient presented to the Emergency Department on the above date and was hospitalized for further evaluation of their emergent condition. Critical Care patient: No - Discharge Referral Referred to [facility] Med [facility].C[facility] No ATTENDING PHYSICIAN STATEMENT I saw and evaluated the patient. I reviewed the resident's note and discussed the case with the resident. I agree with the resident's findings and plan as documented. SUBJECTIVE: OBJECTIVE: ASSESSMENT AND PLAN:
[2020-06-09] MEDS ORDERED: HEPARIN NA (PORCINE) 5,000 UNITS/ML 1ML VIAL ONE (15:14)
[2020-06-09] MEDS ORDERED: THIAMINE HCL 200 MG/2 ML VIAL ONE (15:14)
[2020-06-09 16:48] VITALS: BP 148/76; PULSE 74; TEMP 98.4
== END 2020-06-09 16:24 | disposition home or self-care (01) ==
LOC: JER 11:58 → JERBED 14:23
PROVIDERS: ATTEND Internal Medicine
PROC: 3E013GC Introduction of Other Therapeutic Substance into Subcutaneous Tissue, Percutaneous Approach (ICD-10-PCS; principal; 2020-06-08)
DX: I25.110 Atherosclerotic heart disease of native coronary artery with unstable angina pectoris (principal); R07.89 Other chest pain; I10 Essential (primary) hypertension; E78.5 Hyperlipidemia, unspecified; E78.1 Pure hyperglyceridemia; I25.2 Old myocardial infarction; I73.1 Thromboangiitis obliterans [Buerger's disease]; K21.9 Gastro-esophageal reflux disease without esophagitis; G45.8 Other transient cerebral ischemic attacks and related syndromes; E11.9 Type 2 diabetes mellitus without complications; Z86.73 Personal history of transient ischemic attack (TIA), and cerebral infarction without residual deficits; Z95.5 Presence of coronary angioplasty implant and graft; Z79.82 Long term (current) use of aspirin; Z79.02 Long term (current) use of antithrombotics/antiplatelets
CPT/HCPCS: 36415; 71045-TC-FY; 80048; 80053; 80061; 82550; 83721; 83880; 84443; 84484; 85025; 85610; 85730; 93005; 93010; 93306-TC; 96372; 99285-25; G0378; U0003

== ENCOUNTER 2020-06-11 09:41 | Emergency (ER) | payer OTHER ==
[2020-06-11 10:06] VITALS: BMI 16.8
[2020-06-11] MEDS ORDERED: ASPIRIN 81 MG CHEWABLE TABLETS PO ONE (10:08)
--- NOTE | 2020-06-11 10:32 | PDOC ---
Documentation entered by Carina Perez SCRIBE, acting as scribe for Priya Sue MD. Priya Sue MD: This documentation has been prepared by the Ana mitchell Adrianna, SCRIBE, under my direction and personally reviewed by me in its entirety. I confirm that the documentation accurately reflects all work, treatment, procedures, and medical decision making performed by me. History of Present Illness - General Chief Complaint: Chest Pain Stated Complaint: Chest Pain Time Seen by Provider: 06/11/20 10:06 History Source: Patient Exam Limitations: No Limitations - History of Present Illness Initial Comments: HPI The patient is an 80 year old female, with a significant PMH of HTN, HLD, CAD (CO s/p cardiac stenting x2), CVA, subclavian steal syndrome, angina, Buerger's Disease, and dementia, presenting with chest tightness since this morning. Patient notes she developed localized substernal chest tightness and pressure this morning around 8am. She proceeded to get up and walk around, where her symptoms lasted for ~10 minutes and self -resolved. Patient was seen at [facility] for the same complaint 3 days ago, where she was admitted for a trop rule out. Her ECHO demonstrated an EF of 55%. Her last STRESS test was in 2015, and demonstr ates an apical infarct, ischemia, and disyknetic apex. Patient notes her chest tightness has been progressively worse, prompting her visit to the ED (Dr. Colón recommended admission for a new STRESS test and coronary angiogram to evaluate the severity of her CAD). Patient denies having the chest pain while in the ED. Denies fever, chills, SOB, palpitation, dizziness, weakness, LOC, BECKER, changes in vision, changes in hearing, N, V, D, abdominal pain, bladder and bowel problems, focal weakness/paresthesias, leg swelling/pain, bruising, rash. No sick contacts or travel. No new changes in medications. No suspicious food intake Allergies: None Past Medical History/PSH: HTN, HLD, CAD (CO s/p cardiac stenting x2), CVA, subclavian steal syndrome, angina, Buerger's Disease, dementia, cholecystectomy, appendectomy Social history: Lives with family. No tobacco, ETOH or drug use. Meds: as documented in EMR Family history: noncontributory PMD: Dr. Rosas Food Preparation Supervisor: Dr. Colón Review of systems Constitutional: no fevers or chills. No weakness HEENT: no headache or dizziness. No congestion. No visual/hearing disturbances. CVS: +localized substernal chest tightness and pressure. no syncope. Resp: no sob. No cough. Gastrointestinal: no abdominal pain, nausea, vomiting, diarrhea. Genitourinary: no urinary sx, hematuria. MUSCULOSKELETAL: No joint pain and swelling. No neck or back pain. SKIN: no redness or skin changes, no discharge, no rash. No wounds. Hematologic: no easy bruising/bleeding. NEUROLOGIC: No headache, dizziness, LOC or altered mental status. No weakness, numbness or tingling. Psych: no anxiety or depression Allergic/Immunologic: no allergies All other systems reviewed and negative, or as documented in HPI. Physical exam General: Well appearing, awake and alert, NAD. HEENT: NCAT, PERRL, EOMI, clear conjunctiva, anicteric, moist mucus membranes, clear oropharynx, no oral lesions. Neck: neck supple, FROM Resp: CTAB, normal and even respirations, no respiratory distress Chest: no reproducible chest wall tenderness. no rash, no ecchymosis, no crepitus. CVS: RRR, no murmurs, 2+ peripheral pulses throughout, no peripheral edema Abdomen: soft, NTND, no rebound or guarding. No CVAT. Back: nontender, normal inspection and ROM MSK: no edema, SEQUEIRA x4, ROM intact. No clubbing or cyanosis. normal bulk and tone. Extremities: no calf tenderness Neuro: alert, oriented appropriately; no focal neurologic deficits, speech clear Psych: Calm and cooperative Skin: warm and well perfused, cap refill <2 sec, normal color 06/11/20 11:20 Past History - Medical History Allergies/Adverse Reactions: Allergies Allergy/AdvReac Type Severity Reaction Status Date / Time No Known Allergies Allergy Verified 06/11/20 10:53 Home Medications: Ambulatory Orders Atorvastatin Calcium 80 mg PO DAILY tablet 12/14/16 Carvedilol 12.5 mg PO BID #180 tablet 12/14/16 Clopidogrel Bisulfate [Plavix] 75 mg PO DAILY 06/09/20 Donepezil HCl [Aricept -] 5 mg PO DAILY 06/11/20 Quetiapine Fumarate [Seroquel -] 25 mg PO HS 06/11/20 Anemia: No Asthma: No Cancer: No Cardiac Disorders: Yes (mi 2008, CAD, stents) CVA: No COPD: No CHF: No Dementia: Yes Diabetes: Yes GI Disorders: No Disorders: No HTN: Yes Hypercholesterolemia: Yes Liver Disease: No Seizures: No Thyroid Disease: No - Surgical History Abdominal Surgery: No Appendectomy: Yes Cardiac Surgery: Yes (cardiac stents) Cholecystectomy: Yes Lung Surgery: No Neurologic Surgery: No Orthopedic Surgery: No - Immunization History Td Vaccination: Yes TDAP Vaccination: Yes Immunization Up to Date: Yes - Psycho-Social/Smoking History Smoking History: Never smoked Have you smoked in the past 12 months: No - Substance Abuse Hx (Audit-C & DAST Scrn) How often the patient has a drink containing alcohol: Monthly or less Number of drinks the patient has on a typical day: 1 or 2 How often the patient has six or more drinks on one occasion: Never Score: In Men: 4 or > Positive; In Women: 3 or > Positive: 1 Screen Result (Pos requires Nsg. Audit-10AR): Negative In the last yr the pt used illegal drug/Rx for NonMed reason: No Score: Yes response is considered Positive: 0 Screen Result (Positive result requires Nsg. DAST-10): Negative Cardiac Specific PMH - Complaint Specific PMHX Pacemaker: No *Physical Exam - Vital Signs Last Vital Signs Temp Pulse Resp BP Pulse Ox 97.8 F 61 20 156/56 L 100 06/11/20 10:43 06/11/20 10:43 06/11/20 10:43 06/11/20 10:43 06/11/20 10:43 Heart Score/ECG Review - History History: Moderately suspicious - Electrocardiogram EKG: Non specific repolarization disturbance - Age Age: >/= 65 - Risk Factors Risk Factors Heart Score: Yes Hx Hypercholesterolemia, Yes Hx Hypertension Based on the list above the patient has:: 1-2 risk factors - Troponin Troponin: </= normal limit - Score Heart Score - Total: 5 #1 ECG reviewed & interpreted by me at: 10:00 General ECG Interpretation: Sinus Rhythm, Normal Intervals Compared to previous ECG there are: No significant change 06/11/20 10:32 EKG normal sinus rhythm 59 bpm, no interval abnormalities, narrow QRS, ST and T wave segments and morphology normal. Nonspecific T wave abnormalities, unchanged from prior ED Treatment Course - LABORATORY CBC & Chemistry Diagram: 06/11/20 10:10 06/11/20 10:10 - ADDITIONAL ORDERS Additional order review: Laboratory Results 06/11/20 06/11/20 10:10 10:10 PT with INR 11.00 INR 0.93 PTT (Actin FS) 18.9 L Sodium 140 Potassium 4.4 Chloride 108 H Carbon Dioxide 30 Anion Gap 3 L BUN 23.3 H Creatinine 0.8 Est GFR (CKD-EPI)AfAm 80.70 Est GFR (CKD-EPI)NonAf 69.63 Random Glucose 125 H Calcium 9.1 Magnesium 2.2 Total Bilirubin 0.5 AST 23 ALT 30 Alkaline Phosphatase 66 Creatine Kinase 146 Troponin I < 0.02 Total Protein 6.6 Albumin 3.4 06/11/20 10:10 RBC 3.95 MCV 94.6 MCHC 33.3 RDW 14.1 MPV 9.2 Neutrophils % 65.0 Lymphocytes % 19.0 Monocytes % 12.5 H Eosinophils % 2.5 Basophils % 1.0 - RADIOLOGY Radiology Studies Ordered: Category Date Time Status CHEST X-RAY PORTABLE* [RAD] Stat Radiology 06/11/20 10:08 Completed Radiograph Interpretation: EXAM#: TYPE/EXAM: RESULT: [id number] RAD/CHEST X-RAY PORTABLE* Chest: Chest pain Impression: No acute chest pathology. Left clips. No change since 06/08/2020 Reported By: Gerson Bradley MD 06/11/20 10:34 - Medications Given in the ED: ED Medications Discontinued Medications Generic Name Dose Route Start Last Admin Trade Name Freq PRN Reason Stop Dose Admin Aspirin 162 mg 06/11/20 10:08 06/11/20 10:37 Asa - PO 06/11/20 10:09 162 mg ONCE ONE Administration Medical Decision Making - Medical Decision Making 06/11/20 10:31 Vital Signs Temp Pulse Resp BP Pulse Ox 97.8 F 61 20 156/56 L 99 06/11/20 09:57 06/11/20 09:57 06/11/20 09:57 06/11/20 09:57 06/11/20 09:57 vitals reviewed, wnl, reassuring DDx chest pain: ACS, coronary vasospasm, NSTEMI, arrhythmia, unstable angina, PE, dissection, PUD, esophageal spasm, GERD, gastritis, costochondritis, pneumonia, pleurisy, pericarditis/myocarditis. dehydration, electrolyte/metabolic derangements. Considered but clinically doubt based on HPI and PE: Low suspicion for pulmonary embolism or dissection. Interpreted by ED Physician: CXR (1 view): no acute abnormality: no infiltrates, bones appear intact and structures normal alignment, cardiac silhouette within normal limits. no free air under diaphragm, no pneumothorax. hyperinflated lungs, scoliosis initial trop is negative; labs and lytes wnl. EKG normal sinus rhythm, no interval abnormalities, narrow QRS, ST and T wave segments and morphology normal. Nonspecific T wave abnormalities, unchanged from prior Chest pain HEART score 5 which denotes Moderate risk and probability for ACS, risk of 14-16% of MACE at 4-6 wks Given risk factors including comorbidities, gender, typical sx, prior CAD/CO s/p PCI warrants more provocative testing. pt was planned for stress test with Dr Colón, if sx persisteted Plan for admit observation for her typical chest pain sx, inpatient Stress test ing given her recurrent sx and prior CO/CAD history with PCI, to r/o ischemia, serial trops and EKG/tele monitoring. ASA administered, pain controlled, discussion with patient and family at bedside, made aware of impression and plan, questions answered. admitting to Dr Ileana Cai. 06/11/20 11:21 06/11/20 11:22 06/11/20 12:12 06/11/20 12:13 Discharge - Discharge Information Problems reviewed: Yes Clinical Impression/Diagnosis: Chest pain, S/P right coronary artery (RCA) stent placement Condition: Fair - Admission Yes - Follow up/Referral Referrals: Cristobal oClón MD [Primary Care Provider] - - Patient Discharge Instructions - Post Discharge Activity
[2020-06-11] MEDS ORDERED: ASPIRIN 81 MG CHEWABLE TABLETS ONE (10:37)
[2020-06-11 10:49] LABS: EOS % 2.5 % (0-4.5); HEMATOCRIT 37.4 % (32.4-45.2); HEMOGLOBIN 12.4 GM/dL (10.7-15.3); MCH 31.5 pg (25.7-33.7); MCHC 33.3 g/dl (32.0-36.0); MEAN CELL VOLUME 94.6 fl (80-96); MEAN PLT VOLUME 9.2 fl (7.5-11.1); MONO % 12.5 % (3.8-10.2); PLATELET COUNT 146 K/MM3 (134-434); RBC 3.95 M/mm3 (3.60-5.2); RDW 14.1 % (11.6-15.6); WHITE BLOOD COUNT 5.2 K/mm3 (4.0-10.0)
[2020-06-11 10:55] LABS: INR 0.93 (0.83-1.09)
[2020-06-11 10:57] LABS: ACTIVATED PTT 18.9 SECONDS (25.2-36.5)
[2020-06-11 11:19] LABS: ALBUMIN 3.4 g/dl (3.4-5.0); ALK PHOS 66 U/L (45-117); ANION GAP 3 MMOL/L (8-16); BILIRUBIN,TOTAL 0.5 mg/dL (0.2-1); BLOOD UREA NITROGEN 23.3 mg/dL (7-18); CALCIUM 9.1 mg/dL (8.5-10.1); CHLORIDE 108 mmol/L (98-107); CO2 30 mmol/L (21-32); CREATININE 0.8 mg/dL (0.55-1.3); GLUCOSE,RANDOM 125 mg/dL (74-106); MAGNESIUM 2.2 mg/dL (1.8-2.4); POTASSIUM 4.4 mmol/L (3.5-5.1); SGOT/AST 23 U/L (15-37); SGPT/ALT 30 U/L (13-61); SODIUM 140 mmol/L (136-145); TOT PROT 6.6 g/dl (6.4-8.2)
--- NOTE | 2020-06-11 12:10 | EKG ---
Test Reason : Blood Pressure : / mmHG Vent. Rate : 059 BPM Atrial Rate : 059 BPM P-R Int : 202 ms QRS Dur : 084 ms QT Int : 408 ms P-R-T Axes : 080 -55 050 degrees QTc Int : 403 ms SINUS BRADYCARDIA LEFT AXIS DEVIATION INCOMPLETE RBBB SEPTAL INFARCT NONSPECIFIC T WAVE ABNORMALITY ABNORMAL ECG Confirmed by MD YASIR, QUINCY ([id number]) on 06/11/2020 12:09:53 PM Referred By: Confirmed By:QUINCY COOLEY MD
--- NOTE | 2020-06-11 12:17 | PN ---
Teaching Attending Note Name of Resident: Neymar Solitario ATTENDING PHYSICIAN STATEMENT I saw and evaluated the patient. I reviewed the resident's note and discussed the case with the resident. I agree with the resident's findings and plan as documented. SUBJECTIVE: Patient feels comfortable denies any chest pain just completed lunch OBJECTIVE: Vital Signs Temperature 97.8 F 06/11/20 10:43 Pulse Rate 61 06/11/20 10:43 Respiratory Rate 20 06/11/20 10:43 Blood Pressure 156/56 L 06/11/20 10:43 O2 Sat by Pulse Oximetry (%) 100 06/11/20 10:43 General: Elderly woman, comfortable, not in distress HEENT mucous membranes moist, no anemia, no jaundice, PERRLA, no nystagmus Neck: No JVD, supple, no bruit, thyroid palpably normal, normal carotid pulsations. Chest: Nontender, clear to auscultation bilaterally CVS: S1-S2 regular no murmur/gallop/rub Abdomen: Nondistended, soft, bowel sounds present. Extremities: No edema., No Calf tenderness, pulses present YARN CLEANER: AO X3 , no gross motor sensory deficit CBC,CMP WBC 5.2 K/mm3 (4.0-10.0) 06/11/20 10:10 RBC 3.95 M/mm3 (3.60-5.2) 06/11/20 10:10 Hgb 12.4 GM/dL (10.7-15.3) 06/11/20 10:10 Hct 37.4 % (32.4-45.2) 06/11/20 10:10 MCV 94.6 fl (80-96) 06/11/20 10:10 MCH 31.5 pg (25.7-33.7) 06/11/20 10:10 MCHC 33.3 g/dl (32.0-36.0) 06/11/20 10:10 RDW 14.1 % (11.6-15.6) 06/11/20 10:10 Plt Count 146 K/MM3 (134-434) 06/11/20 10:10 MPV 9.2 fl (7.5-11.1) 06/11/20 10:10 Absolute Neuts (auto) 3.4 K/mm3 (1.5-8.0) 06/11/20 10:10 Neutrophils % 65.0 % (42.8-82.8) 06/11/20 10:10 Lymphocytes % 19.0 % (8-40) 06/11/20 10:10 Monocytes % 12.5 % (3.8-10.2) H 06/11/20 10:10 Eosinophils % 2.5 % (0-4.5) 06/11/20 10:10 Basophils % 1.0 % (0-2.0) 06/11/20 10:10 Nucleated RBC % 0 % (0-0) 06/11/20 10:10 Sodium 140 mmol/L (136-145) 06/11/20 10:10 Potassium 4.4 mmol/L (3.5-5.1) 06/11/20 10:10 Chloride 108 mmol/L (98-107) H 06/11/20 10:10 Carbon Dioxide 30 mmol/L (21-32) 06/11/20 10:10 Anion Gap 3 MMOL/L (8-16) L 06/11/20 10:10 BUN 23.3 mg/dL (7-18) H 06/11/20 10:10 Creatinine 0.8 mg/dL (0.55-1.3) 06/11/20 10:10 Est GFR (CKD-EPI)AfAm 80.70 06/11/20 10:10 Est GFR (CKD-EPI)NonAf 69.63 06/11/20 10:10 Random Glucose 125 mg/dL (74-106) H 06/11/20 10:10 Calcium 9.1 mg/dL (8.5-10.1) 06/11/20 10:10 Magnesium 2.2 mg/dL (1.8-2.4) 06/11/20 10:10 Total Bilirubin 0.5 mg/dL (0.2-1) 06/11/20 10:10 AST 23 U/L (15-37) 06/11/20 10:10 ALT 30 U/L (13-61) 06/11/20 10:10 Alkaline Phosphatase 66 U/L (45-117) 06/11/20 10:10 Creatine Kinase 146 U/L (26-192) 06/11/20 10:10 Troponin I < 0.02 ng/ml (0.00-0.05) 06/11/20 10:10 Total Protein 6.6 g/dl (6.4-8.2) 06/11/20 10:10 Albumin 3.4 g/dl (3.4-5.0) 06/11/20 10:10 Chest x-ray: No acute changes EKG: Heart rate 59, LAD -55, incomplete RBBB no acute ST changes Active Medications Amlodipine Besylate (Norvasc -) 2.5 mg PO DAILY [facility] Last Admin: 06/11/20 14:04 Dose: 2.5 mg Documented by: Aspirin (Asa -) 81 mg PO DAILY [facility] Atorvastatin Calcium (Lipitor -) 80 mg PO HS [facility] Carvedilol (Coreg -) 12.5 mg PO BID [facility] Last Admin: 06/11/20 14:04 Dose: 12.5 mg Documented by: Clopidogrel Bisulfate (Plavix -) 75 mg PO DAILY [facility] Donepezil HCl (Aricept -) 10 mg PO DAILY [facility] Ezetimibe (Zetia -) 10 mg PO DAILY [facility] Enoxaparin Sodium (Lovenox -) 40 mg SQ DAILY [facility] Lisinopril (Prinivil) 10 mg PO DAILY [facility] Non-Formulary Medication (Benazepril Hcl [Benazepril Hcl]) 10 mg PO DAILY [facility] ASSESSMENT AND PLAN: 80 years old female multiple medical commodities recently discharged after worked up for the chest pain on June 09, 2020, history of hypertension, type 2 diabetes mellitus, dyslipidemia, 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 Chest pain: History of CAD status post PCI recurrent atypical chest pain considering multiple risk factors will admit to rule out ACS and inpatient nuclear stress test, personnel monitor serial troponin I and EKGs, at the time of examination patient is chest resume all home medications. Cardiology consult is called from the ED. 2. Hypertension: Well-controlled resume her home medications amlodipine 2.5 mg, Coreg 12.5 mg twice daily lisinopril 10 mg daily. 3. Hypercholesteremia: LDL is at target continue statin 4. Peripheral artery disease, on a statin atorvastatin 80 mg and Zetia 5. Dementia: Continue Lexapro DVT prophylaxis Case discussed with the resident
--- NOTE | 2020-06-11 12:20 | HP ---
CHIEF COMPLAINT: central chest tightness PCP: Ralph HISTORY OF PRESENT ILLNESS: 80F w/ pmh of HTN, HLD, CAD s/p PCI(LORENZO in RCA), GERD, CVA, Subclavian steal syndrome s/p carotid bypass, Buergers Disease, dementia BIBA for complaint of substernal chest tightness. Had chest tightness while sitting down at ~0800, radiating up to chin. Tried walking around outside her home which provided some relief. Pain completely subsided after EMS brought pt into [facility]. Did not take any SLN. Had recent hospitalization at [facility] for ACS r/o. Was discharged after trop neg x3 and Echo showed LVEF 55%. Has been adherent to daily medications. Had plans for outpt follow-up at Dr Martinez for June 16 for possible stress test. Last stress test was Oct 2016 which showed apical infarct w/a apical dyskinesia. Denies worsening of baseline functional status. Able to ambulate independently, likes to cut eid in the garden, walks up stairs. Has [employer]ER to help with cooking and driving. ER course was notable for: (1) EKG w/o changes (2) troponin neg x1 (3) administered ASA 162mg Recent Travel: denies PAST MEDICAL HISTORY: denies PAST SURGICAL HISTORY: PCI, subclavian steal repair Social History: Smoking: quit smoking 40ys prior Alcohol: denies Drugs: denies Allergies No Known Allergies Allergy (Verified 06/11/20 10:53) HOME MEDICATIONS: Home Medications Medication Instructions Recorded Atorvastatin Calcium 80 mg PO DAILY tablet 12/14/16 Carvedilol 12.5 mg PO BID #180 tablet 12/14/16 Clopidogrel Bisulfate [Plavix] 75 mg PO DAILY 06/09/20 Donepezil HCl [Aricept -] 5 mg PO DAILY 06/11/20 Quetiapine Fumarate [Seroquel -] 25 mg PO HS 06/11/20 REVIEW OF SYSTEMS CONSTITUTIONAL: Absent: fever, chills, diaphoresis, generalized weakness, malaise, loss of appetite, weight change HEENT: Absent: rhinorrhea, nasal congestion, throat pain, throat swelling, difficulty swallowing, mouth swelling, ear pain, eye pain, visual changes CARDIOVASCULAR: substernal chest tightness Absent: syncope, palpitations, irregular heart rate, lightheadedness, peripheral edema RESPIRATORY: Absent: cough, shortness of breath, dyspnea with exertion, orthopnea, wheezing, stridor, hemoptysis GASTROINTESTINAL: Absent: abdominal pain, abdominal distension, nausea, vomiting, diarrhea, constipation, melena, hematochezia GENITOURINARY: Absent: dysuria, frequency, urgency, hesitancy, hematuria, flank pain, genital pain MUSCULOSKELETAL: Absent: myalgia, arthralgia, joint swelling, back pain, neck pain SKIN: Absent: rash, itching, pallor HEMATOLOGIC/IMMUNOLOGIC: Absent: easy bleeding, easy bruising, lymphadenopathy, frequent infections ENDOCRINE: Absent: unexplained weight gain, unexplained weight loss, heat intolerance, cold intolerance NEUROLOGIC: Absent: headache, focal weakness or paresthesias, dizziness, unsteady gait, seizure, mental status changes, bladder or bowel incontinence PSYCHIATRIC: Absent: anxiety, depression, suicidal or homicidal ideation, hallucinations. PHYSICAL EXAMINATION Vital Signs - 24 hr 06/11/20 06/11/20 09:57 10:43 Temperature 97.8 F 97.8 F Pulse Rate 61 Pulse Rate [ 61 Left Radial] Respiratory 20 20 Rate Blood Pressure 156/56 L Blood Pressure 156/56 L [Left Arm] O2 Sat by Pulse 99 99 Oximetry (%) GENERAL: Awake, alert, and fully oriented, in no acute distress. Pleasant, mildly KAKE HEAD: Normal with no signs of trauma. EYES: sclera anicteric, conjunctiva clear. No lid lag. EARS, NOSE, THROAT: oropharynx clear without exudates. Moist mucous membranes. NECK: supple without lymphadenopathy, JVD, or masses. Left-sided supraclavicular well-healed incisional scar LUNGS: Breath sounds equal, clear to auscultation bilaterally. No wheezes, and no crackles. No accessory muscle use. Speaking full sentences HEART: Regular rate and rhythm, normal S1 and S2 without murmur, rub or gallop. ABDOMEN: Soft, nontender, not distended, no guarding, no rebound. MUSCULOSKELETAL: Normal range of motion at all joints. No bony deformities or tenderness. UPPER EXTREMITIES: 2+ pulses, warm, well-perfused. No cyanosis. No clubbing. No peripheral edema. LOWER EXTREMITIES: 1+ pulses, warm, well-perfused. No calf tenderness. Non- pitting edema of BLE NEUROLOGICAL: Normal speech Laboratory Results - last 24 hr 06/11/20 06/11/20 06/11/20 10:10 10:10 10:10 WBC 5.2 RBC 3.95 Hgb 12.4 Hct 37.4 MCV 94.6 MCH 31.5 MCHC 33.3 RDW 14.1 Plt Count 146 MPV 9.2 Absolute Neuts (auto) 3.4 Neutrophils % 65.0 Lymphocytes % 19.0 Monocytes % 12.5 H Eosinophils % 2.5 Basophils % 1.0 Nucleated RBC % 0 PT with INR 11.00 INR 0.93 PTT (Actin FS) 18.9 L Sodium 140 Potassium 4.4 Chloride 108 H Carbon Dioxide 30 Anion Gap 3 L BUN 23.3 H Creatinine 0.8 Est GFR (CKD-EPI)AfAm 80.70 Est GFR (CKD-EPI)NonAf 69.63 Random Glucose 125 H Calcium 9.1 Magnesium 2.2 Total Bilirubin 0.5 AST 23 ALT 30 Alkaline Phosphatase 66 Creatine Kinase 146 Troponin I < 0.02 Total Protein 6.6 Albumin 3.4 ASSESSMENT/PLAN: 80F w/ pmh of HTN, HLD, CAD s/p PCI(LORENZO in RCA), GERD, CVA, Subclavian steal syndrome s/p carotid bypass, Buergers Disease, dementia BIBA for complaint of substernal chest tightness. Had chest tightness while sitting down at ~0800, radiating up to chin. Admitted for ACS r/o with plan for inpt stress test. #unstable angina --pt w/ significant h/o CAD > EKG: no changes from previous admission > troponin: neg x1 --trend troponin - cw home ASA 81, plavix, atorvastatin 80, zetia 10, carvedilol 12.5 BID - Cardio Consult: --inpt stress test --started norvasc 2.5mg #HTN - cw home regimen + Norvasc - pt's pharmacy had no record of Norvasc #HLD - cw home statin FEN: - no mIVF - sodium-fat diet - NPO at [place] for stress test on 06/12/2020 DVT PPX: - lovenox Family Medical History Family Hx Cardiac Disorders: Father ([place] ) Visit type - Emergency Visit Emergency Visit: Yes ED Registration Date: 06/11/20 Care time: The patient presented to the Emergency Department on the above date and was hospitalized for further evaluation of their emergent condition. - New Patient This patient is new to me today: Yes Date on this admission: 06/11/20 - Critical Care Critical Care patient: No ATTENDING PHYSICIAN STATEMENT I saw and evaluated the patient. I reviewed the resident's note and discussed the case with the resident. I agree with the resident's findings and plan as documented. SUBJECTIVE: OBJECTIVE: ASSESSMENT AND PLAN:
--- NOTE | 2020-06-11 13:12 | CON.CARD ---
Consult Consult Specialty:: Cardiology Referred by:: Emergency Medicine Reason for Consultation:: Chest pain - History of Present Illness Chief Complaint: Chest pain History of Present Illness: 80 yo female h/o peripheral artery disease with distal aortic occlusion, left subclavian->carotid bypass, CAD s/p NSTEMI, LORENZO RCA, HTN, type 2 DM, hyperlipidemia since last visit 05/06/2020, on 06/08/2020 presentation to ED with left-sided chest tightness and associated dyspnea, ruled out for FL, presents recurrent chest pain while getting aggravated, w/o associated dyspnea, near or true syncope, palpitations, orthopnea, PND or LE edema, currently chest- pain free. - History Source History Provided By: Patient Limitations to Obtaining History: No Limitations - Past Medical History Cardio/Vascular: Yes: CAD, HTN, Hyperlipdemia, FL, Other Gastrointestinal: Yes: Other Hepatobiliary: Yes: Other Endocrine: Yes: Diabetes Mellitus - Past Surgical History Past Surgical History: Yes: Stent - Alcohol/Substance Use Hx Alcohol Use: No - Smoking History Smoking history: Never smoked Have you smoked in the past 12 months: No - Social History Usual Living Arrangement: With Significant Other Home Medications - Allergies Allergies/Adverse Reactions: Allergies Allergy/AdvReac Type Severity Reaction Status Date / Time No Known Allergies Allergy Verified 06/11/20 10:53 - Home Medications Home Medications: Ambulatory Orders Atorvastatin Calcium 80 mg PO DAILY tablet 12/14/16 Carvedilol 12.5 mg PO BID #180 tablet 12/14/16 Clopidogrel Bisulfate [Plavix] 75 mg PO DAILY 06/09/20 Donepezil HCl [Aricept -] 5 mg PO DAILY 06/11/20 Quetiapine Fumarate [Seroquel -] 25 mg PO HS 06/11/20 Review of Systems - Review of Systems Cardiovascular: reports: Chest Pain Vital Signs: Vital Signs Temperature 97.8 F 06/11/20 10:43 Pulse Rate 61 06/11/20 10:43 Respiratory Rate 20 06/11/20 10:43 Blood Pressure 156/56 L 06/11/20 10:43 O2 Sat by Pulse Oximetry (%) 100 06/11/20 10:43 Constitutional: Yes: No Distress, Calm Neck: Yes: Supple Respiratory: Yes: Regular, CTA Bilaterally Gastrointestinal: Yes: Normal Bowel Sounds, Soft Cardiovascular: Yes: Regular Rate and Rhythm JVD: No Carotid Bruit: No Heart Sounds: Yes: S1, S2 Edema: No - Other Data Labs, Other Data: CBC, BMP 06/11/20 10:10 06/11/20 10:10 INR, PTT INR 0.93 (0.83-1.09) 06/11/20 10:10 Troponin, BNP 06/11/20 10:10 Troponin I < 0.02 Troponin, BNP 06/11/20 10:10 Troponin I < 0.02 SB 59 LAD, incomplete RBBB no acute ST changes Prior Cardiac Procedures: PTCA with Stent Ejection Fraction %: LVEF > or = 40 % Imaging - Results Chest X-ray: Report Reviewed ( Chest x-ray: No acute changes) Assessment/Plan Problem List - Problems (1) Chest pain Code(s): R07.9 - CHEST PAIN, UNSPECIFIED Qualifiers: Chest pain type: precordial pain Qualified Code(s): R07.2 - Precordial pain (2) Buergers disease Code(s): I73.1 - THROMBOANGIITIS OBLITERANS [BUERGER'S DISEASE] (3) Coronary artery disease Code(s): I25.10 - ATHSCL HEART DISEASE OF [place] CORONARY ARTERY W/O ANG PCTRS Qualifiers: Coronary Disease-Associated Artery/Lesion type: [place] artery [place] vs. transplanted heart: [place] heart Associated angina: with unstable angina Qualified Code(s): I25.110 - Atherosclerotic heart disease of [place] coronary artery with unstable angina pectoris (4) Diabetes mellitus Code(s): E11.9 - TYPE 2 DIABETES MELLITUS WITHOUT COMPLICATIONS Qualifiers: Diabetes mellitus type: type 2 Diabetes mellitus manager long term care insulin use: without manager long term care use Diabetes mellitus complication status: without complication Qualified Code(s): E11.9 - Type 2 diabetes mellitus without complications (5) Hyperlipidemia Code(s): E78.5 - HYPERLIPIDEMIA, UNSPECIFIED Qualifiers: Hyperlipidemia type: pure hypercholesterolemia Qualified Code(s): E78.00 - Pure hypercholesterolemia, unspecified; E78.0 - Pure hypercholesterolemia (6) Hypertension Code(s): I10 - ESSENTIAL (PRIMARY) HYPERTENSION Qualifiers: Hypertension type: essential hypertension Qualified Code(s): I10 - Essential (primary) hypertension (7) 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, greater than 8 weeks Code(s): I25.2 - OLD MYOCARDIAL INFARCTION (8) S/P right coronary artery (RCA) stent placement Code(s): Z95.5 - PRESENCE OF CORONARY ANGIOPLASTY IMPLANT AND GRAFT (9) Subclavian steal syndrome Code(s): G45.8 - OTH TRANSIENT CEREBRAL ISCHEMIC ATTACKS AND RELATED SYND Assessment/Plan 06/09/2020: Echo: Normal biventricular size and fxn LVEF 55%, mild TR 02/03/2017 Echo: Normal LV size and fxn, mild TR, tr-mild MR 10/29/2016 Echo: Moderate LV systolic dysfunction with severe HK pf mid anteroseptum, apical anterior, apex and inferior tanner, mild TR 03/15/2017 ETT: Negative ischemia 87% MPHR 10/29/2016 P-Myoview Moderate zone of apical infarct with mild yassine-infarct ischemia. dyskinetic apex LVEF 57% 04/14/2016 Normal MPI, normal LVEF 83% 1. Recurrent chest pain with underlying CAD post FL, PCI (stent), angina pectoris 2. PAD with history of distal aortic occlusion and left subclavian -> carotid bypass 3. LV diastolic dysfunction euvolemic 4. HTN 5. DM (diet controlled) 6. Dyslipidemia IIb 7. Dizziness and syncope, possibly temporally related to silent LAD infarct 8. Dementia PLAN: 1. Ruling out recurrent FL 2. Continue ASA 81 qd, Plavix 75 qd, Lipitor 80 qd, Zetia 10 qd, carvedilol 12.5 bid, and resume Norvasc 2.5 qd and benazepril 10 qd 3. Inpatient stress test to evaluate severity of CAD once ruled out for FL 4. Eventual outpatient f/u in office 5. Thank you for consultative opportunity
[2020-06-11] MEDS ORDERED: amLODIPine BESYLATE 2.5 MG TABLET (FP) ONE (14:03)
[2020-06-11] MEDS: amLODIPine BESYLATE 2.5 MG TABLET (FP) PO SCH (14:04)
[2020-06-11] MEDS ORDERED: CARVEDILOL 12.5 MG TABLET (FP) ONE ×2 (14:04→22:16)
[2020-06-11] MEDS: CARVEDILOL 12.5 MG TABLET (FP) PO SCH ×2 (14:04→22:27)
[2020-06-11] MEDS ORDERED: ATORVASTATIN CA 80 MG TABLET (FP) PO SCH (22:00)
[2020-06-11] MEDS ORDERED: CARVEDILOL 12.5 MG TABLET (FP) PO SCH (22:00)
[2020-06-11] MEDS ORDERED: ATORVASTATIN CA 80 MG TABLET (FP) ONE (22:16)
[2020-06-12 06:22] LABS: BASO % 1.3 % (0-2.0); EOS % 2.2 % (0-4.5); HEMATOCRIT 38.9 % (32.4-45.2); HEMOGLOBIN 12.9 GM/dL (10.7-15.3); LYMPH % 23.8 % (8-40); MCH 31.3 pg (25.7-33.7); MCHC 33.1 g/dl (32.0-36.0); MEAN CELL VOLUME 94.6 fl (80-96); MONO % 8.7 % (3.8-10.2); PLATELET COUNT 110 K/MM3 (134-434); RBC 4.12 M/mm3 (3.60-5.2); RDW 13.8 % (11.6-15.6); WHITE BLOOD COUNT 5.7 K/mm3 (4.0-10.0)
[2020-06-12 06:45] LABS: BLOOD UREA NITROGEN 21.1 mg/dL (7-18); CALCIUM 8.8 mg/dL (8.5-10.1); CREATININE 0.7 mg/dL (0.55-1.3); MAGNESIUM 2.1 mg/dL (1.8-2.4); PHOSPHOROUS 3.4 mg/dL (2.5-4.9); POTASSIUM 3.8 mmol/L (3.5-5.1)
[2020-06-12] MEDS ORDERED: REGADENOSON 0.4 MG/5 ML PRE-FILLED SYRINGE IVPUSH ONE ×2 (09:38→10:00)
[2020-06-12] MEDS ORDERED: ASPIRIN 81 MG CHEWABLE TABLETS ONE (09:50)
[2020-06-12] MEDS ORDERED: amLODIPine BESYLATE 2.5 MG TABLET (FP) ONE (09:50)
[2020-06-12] MEDS ORDERED: CLOPIDOGREL BISULFATE 75 MG TABLET (FP) ONE (09:50)
[2020-06-12] MEDS ORDERED: CARVEDILOL 12.5 MG TABLET (FP) ONE (09:50)
[2020-06-12] MEDS ORDERED: DONEPEZIL HCL 5 MG TABLET (FP) ONE (09:51)
[2020-06-12] MEDS ORDERED: ENOXAPARIN NA (PORCINE) 40 MG/0.4 ML DISP.SYRIN SQ ONE (09:51)
[2020-06-12] MEDS ORDERED: CLOPIDOGREL BISULFATE 75 MG TABLET (FP) PO SCH ×2 (10:00)
[2020-06-12] MEDS ORDERED: EZETIMIBE 10 MG TABLET (FP) PO SCH ×2 (10:00)
[2020-06-12] MEDS ORDERED: ENOXAPARIN NA (PORCINE) 40 MG/0.4 ML DISP.SYRIN SQ SCH (10:00)
[2020-06-12] MEDS ORDERED: DONEPEZIL HCL 5 MG TABLET (FP) PO SCH (10:00)
[2020-06-12] MEDS ORDERED: PATIENT'S OWN MEDICATION (NON-FORMULARY) (Benazepril Hcl [Benazepril Hcl] 10 MG) PO SCH (10:00)
[2020-06-12] MEDS ORDERED: ASPIRIN 81 MG CHEWABLE TABLETS PO SCH (10:00)
[2020-06-12] MEDS ORDERED: LISINOPRIL 10 MG TABLET (FP) PO SCH (10:00)
[2020-06-12] MEDS ORDERED: ATORVASTATIN CA 80 MG TABLET (FP) PO SCH (10:00)
--- NOTE | 2020-06-12 10:04 | PN ---
Progress Note, Physician History of Present Illness: 80 yo female h/o peripheral artery disease with distal aortic occlusion, left subclavian->carotid bypass, CAD s/p NSTEMI, LORENZO RCA, HTN, type 2 DM, hyperlipidemia since last visit 05/06/2020, on 06/08/2020 presentation to ED with left-sided chest tightness and associated dyspnea, ruled out for HI, presents recurrent chest pain while getting aggravated, w/o associated dyspnea, near or true syncope, palpitations, orthopnea, PND or LE edema, currently chest- pain free w/o recurrence, just completed Lexican stress. - Current Medication List Current Medications: Active Medications Amlodipine Besylate (Norvasc -) 2.5 mg PO DAILY [facility] Last Admin: 06/11/20 14:04 Dose: 2.5 mg Documented by: Aspirin (Asa -) 81 mg PO DAILY [facility] Atorvastatin Calcium (Lipitor -) 80 mg PO HS [facility] Last Admin: 06/11/20 22:27 Dose: 80 mg Documented by: Carvedilol (Coreg -) 12.5 mg PO BID [facility] Last Admin: 06/11/20 22:27 Dose: 12.5 mg Documented by: Clopidogrel Bisulfate (Plavix -) 75 mg PO DAILY [facility] Donepezil HCl (Aricept -) 10 mg PO DAILY [facility] Ezetimibe (Zetia -) 10 mg PO DAILY [facility] Enoxaparin Sodium (Lovenox -) 40 mg SQ DAILY [facility] Lisinopril (Prinivil) 10 mg PO DAILY [facility] - Objective Vital Signs: Vital Signs Temperature 98.2 F 06/12/20 07:10 Pulse Rate 63 06/12/20 07:10 Respiratory Rate 17 06/12/20 07:10 Blood Pressure 132/47 L 06/12/20 07:10 O2 Sat by Pulse Oximetry (%) 97 06/12/20 07:10 Constitutional: Yes: No Distress, Calm, Thin Neck: Yes: Supple Cardiovascular: Yes: Regular Rate and Rhythm Respiratory: Yes: Regular, CTA Bilaterally Gastrointestinal: Yes: Soft, Hypoactive Bowel Sounds Edema: No Labs: CBC, BMP 06/12/20 05:50 06/12/20 05:50 INR, PTT INR 0.93 (0.83-1.09) 06/11/20 10:10 Assessment/Plan Problem List - Problems (1) Chest pain Code(s): R07.9 - CHEST PAIN, UNSPECIFIED Qualifiers: Chest pain type: precordial pain Qualified Code(s): R07.2 - Precordial pain (2) Buergers disease Code(s): I73.1 - THROMBOANGIITIS OBLITERANS [BUERGER'S DISEASE] (3) Coronary artery disease Code(s): I25.10 - ATHSCL HEART DISEASE OF [place] CORONARY ARTERY W/O ANG PCTRS Qualifiers: Coronary Disease-Associated Artery/Lesion type: [place] artery [place] vs. transplanted heart: [place] heart Associated angina: with unstable angina Qualified Code(s): I25.110 - Atherosclerotic heart disease of [place] coronary artery with unstable angina pectoris (4) Diabetes mellitus Code(s): E11.9 - TYPE 2 DIABETES MELLITUS WITHOUT COMPLICATIONS Qualifiers: Diabetes mellitus type: type 2 Diabetes mellitus group home insulin use: without media services specialist use Diabetes mellitus complication status: without complication Qualified Code(s): E11.9 - Type 2 diabetes mellitus without complications (5) Hyperlipidemia Code(s): E78.5 - HYPERLIPIDEMIA, UNSPECIFIED Qualifiers: Hyperlipidemia type: pure hypercholesterolemia Qualified Code(s): E78.00 - Pure hypercholesterolemia, unspecified; E78.0 - Pure hypercholesterolemia (6) Hypertension Code(s): I10 - ESSENTIAL (PRIMARY) HYPERTENSION Qualifiers: Hypertension type: essential hypertension Qualified Code(s): I10 - Essential (primary) hypertension (7) 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 TRANSIENT CEREBRAL ISCHEMIC ATTACKS AND RELATED SYND Assessment/Plan 06/09/2020: Echo: Normal biventricular size and fxn LVEF 55%, mild TR 02/03/2017 Echo: Normal LV size and fxn, mild TR, tr-mild MR 10/29/2016 Echo: Moderate LV systolic dysfunction with severe HK pf mid anteroseptum, apical anterior, apex and inferior tanner, mild TR 03/15/2017 ETT: Negative ischemia 87% MPHR 10/29/2016 P-Myoview Moderate zone of apical infarct with mild yassine-infarct ischemia. dyskinetic apex LVEF 57% 04/14/2016 Normal MPI, normal LVEF 83% 1. Recurrent chest pain with underlying CAD post HI, PCI (stent), angina pectoris 2. PAD with history of distal aortic occlusion and left subclavian -> carotid bypass 3. LV diastolic dysfunction euvolemic 4. HTN 5. DM (diet controlled) 6. Dyslipidemia IIb 7. Dizziness and syncope, possibly temporally related to silent LAD infarct 8. Dementia PLAN: 1. Ruled out recurrent HI 2. Continue ASA 81 qd, Plavix 75 qd, Lipitor 80 qd, Zetia 10 qd, carvedilol 12.5 bid, and resumed Norvasc 2.5 qd and benazepril 10 qd 3. Await inpatient stress test results to evaluate severity of CAD once ruled out for HI 4. Eventual outpatient f/u in office
[2020-06-12] MEDS: CARVEDILOL 12.5 MG TABLET (FP) PO SCH (11:45)
[2020-06-12] MEDS: amLODIPine BESYLATE 2.5 MG TABLET (FP) PO SCH (11:45)
--- NOTE | 2020-06-12 13:36 | PN ---
Teaching Attending Note Name of Resident: Alvarez Nelson ATTENDING PHYSICIAN STATEMENT I saw and evaluated the patient. I reviewed the resident's note and discussed the case with the resident. I agree with the resident's findings and plan as documented. 80 years old lady with MHx of HTN, DMT2, HLD, CAD s/p LORENZO and Subclavian steal syndrome s/p carotid bypass, Buergers Disease, PAD; who was recently discharged after worked up for the chest pain on June 09, 2020 chest tightness that developed after eating breakfast, lasted 10 minutes, no associated symptom of dizziness syncope or shortness of breath, called 911 came to ED for evaluation at the time of examination patient is chest pain-free. Pt was evaluated by crab backer and scheduled for nuclear stress test today. SUBJECTIVE: Pleasant, not in distress, denies any complains. Seen with her aide at bedside OBJECTIVE: Last Vital Signs Temp Pulse Resp BP Pulse Ox 98.2 F 78 18 161/53 L 98 06/12/20 07:10 06/12/20 11:40 06/12/20 11:40 06/12/20 11:40 06/12/20 11:40 GENERAL: Awake, alert, and fully oriented, in no acute distress. HEAD: Normal with no signs of trauma. EYES: Pupils equal, round and reactive to light, extraocular movements intact, sclera anicteric, conjunctiva clear. No lid lag. EARS, NOSE, THROAT: Ears normal, nares patent, oropharynx clear without exudates. Moist mucous membranes. NECK: Normal range of motion, supple without lymphadenopathy, JVD, or masses. LUNGS: Breath sounds equal, clear to auscultation bilaterally. No wheezes, and no crackles. No accessory muscle use. HEART: Regular rate and rhythm, normal S1 and S2 without murmur, rub or gallop. ABDOMEN: Soft, nontender, not distended, normoactive bowel sounds, no guarding, no rebound, no masses. No hepatomegaly or splenomegaly. MUSCULOSKELETAL: Normal range of motion at all joints. No bony deformities or tenderness. No CVA tenderness. UPPER EXTREMITIES: 2+ pulses, warm, well-perfused. No cyanosis. No clubbing. Cap refill <2 seconds. No peripheral edema. LOWER EXTREMITIES: 2+ pulses, warm, well-perfused. No calf tenderness. No peripheral edema. NEUROLOGICAL: Cranial nerves II-XII intact. Normal speech. Normal gait. PSYCHIATRIC: Cooperative. Good eye contact. Appropriate mood and affect. SKIN: Warm, dry, normal turgor, no rashes or lesions noted. CBCD WBC 5.7 K/mm3 (4.0-10.0) 06/12/20 05:50 RBC 4.12 M/mm3 (3.60-5.2) 06/12/20 05:50 Hgb 12.9 GM/dL (10.7-15.3) 06/12/20 05:50 Hct 38.9 % (32.4-45.2) 06/12/20 05:50 MCV 94.6 fl (80-96) 06/12/20 05:50 MCHC 33.1 g/dl (32.0-36.0) 06/12/20 05:50 RDW 13.8 % (11.6-15.6) 06/12/20 05:50 Plt Count 110 K/MM3 (134-434) L D 06/12/20 05:50 MPV 10.0 fl (7.5-11.1) 06/12/20 05:50 CMP Sodium 141 mmol/L (136-145) 06/12/20 05:50 Potassium 3.8 mmol/L (3.5-5.1) 06/12/20 05:50 Chloride 109 mmol/L (98-107) H 06/12/20 05:50 Carbon Dioxide 27 mmol/L (21-32) 06/12/20 05:50 Anion Gap 5 MMOL/L (8-16) L 06/12/20 05:50 BUN 21.1 mg/dL (7-18) H 06/12/20 05:50 Creatinine 0.7 mg/dL (0.55-1.3) 06/12/20 05:50 Random Glucose 105 mg/dL (74-106) 06/12/20 05:50 Calcium 8.8 mg/dL (8.5-10.1) 06/12/20 05:50 Total Bilirubin 0.5 mg/dL (0.2-1) 06/11/20 10:10 AST 23 U/L (15-37) 06/11/20 10:10 ALT 30 U/L (13-61) 06/11/20 10:10 Alkaline Phosphatase 66 U/L (45-117) 06/11/20 10:10 Total Protein 6.6 g/dl (6.4-8.2) 06/11/20 10:10 Albumin 3.4 g/dl (3.4-5.0) 06/11/20 10:10 CARDIAC ENZYMES Creatine Kinase 146 U/L (26-192) 06/11/20 10:10 Troponin I < 0.02 ng/ml (0.00-0.05) 06/11/20 14:35 Active Medications Amlodipine Besylate (Norvasc -) 2.5 mg PO DAILY [facility] Last Admin: 06/12/20 11:45 Dose: 2.5 mg Documented by: Aspirin (Asa -) 81 mg PO DAILY [facility] Last Admin: 06/12/20 11:45 Dose: 81 mg Documented by: Atorvastatin Calcium (Lipitor -) 80 mg PO HS [facility] Last Admin: 06/11/20 22:27 Dose: 80 mg Documented by: Carvedilol (Coreg -) 12.5 mg PO BID [facility] Last Admin: 06/12/20 11:45 Dose: 12.5 mg Documented by: Clopidogrel Bisulfate (Plavix -) 75 mg PO DAILY [facility] Last Admin: 06/12/20 11:45 Dose: 75 mg Documented by: Donepezil HCl (Aricept -) 10 mg PO DAILY [facility] Last Admin: 06/12/20 11:45 Dose: 10 mg Documented by: Ezetimibe (Zetia -) 10 mg PO DAILY [facility] Last Admin: 06/12/20 11:45 Dose: 10 mg Documented by: Enoxaparin Sodium (Lovenox -) 40 mg SQ DAILY [facility] Last Admin: 06/12/20 11:45 Dose: 40 mg Documented by: Lisinopril (Prinivil) 10 mg PO DAILY [facility] Last Admin: 06/12/20 11:45 Dose: 10 mg Documented by: ASSESSMENT AND PLAN: #Atypical Recurrent Chest Pain to rule out ACS - EKG: no changes from previous admission - troponin: neg x2, 06/09/2020 Echo: Normal biventricular size and fxn LVEF 55%, mild TR - c/w home meds - Cardio Consult obtained, negative nuclear stress test, will discharge for outpatient follow up with crab backer - consult appreciated # #HTN - cw carvedilol, lisinopril + Norvasc #HLD - cw statin, ezetimibe #DVT PPX: - lovenox
--- NOTE | 2020-06-12 13:58 | DS ---
Physical Exam: SUBJECTIVE: Patient seen and examined at bedside. The patient reports feeling fine. The patient denied chest pain, chest pressure, shortness of breath, diarrhea, and nausea/vomiting. OBJECTIVE: Vital Signs Period Temp Pulse Resp BP Sys/Gómez Pulse Ox Last 24 Hr 97.0 F-98.7 F 62-78 16-20 120-161/47-61 97-99 PHYSICAL EXAM GENERAL: The patient is awake, alert, and fully oriented, in no acute distress. HEAD: Normal with no signs of trauma. EYES: Extraocular movements intact. ENT: Ears normal, nares patent, oropharynx clear without exudates, moist mucous membranes. NECK: Trachea midline, full range of motion, supple. LUNGS: Breath sounds equal, clear to auscultation bilaterally, no wheezes, no crackles, no accessory muscle use. HEART: Regular rate and rhythm, S1, S2 without murmur, rub or gallop. ABDOMEN: Soft, nontender, nondistended, normoactive bowel sounds, no guarding, no rebound, no masses. EXTREMITIES: 2+ pulses, warm, well-perfused, no edema. NEUROLOGICAL: Normal speech, gait not observed. PSYCH: Normal mood, normal affect. SKIN: Warm, dry, normal turgor, no rashes or lesions noted. LABS Laboratory Results - last 24 hr 06/11/20 06/12/20 06/12/20 14:35 05:50 05:50 WBC 5.7 RBC 4.12 Hgb 12.9 Hct 38.9 MCV 94.6 MCH 31.3 MCHC 33.1 RDW 13.8 Plt Count 110 L D MPV 10.0 Absolute Neuts (auto) 3.6 Neutrophils % 64.0 Lymphocytes % 23.8 D Monocytes % 8.7 Eosinophils % 2.2 Basophils % 1.3 Nucleated RBC % 0 Sodium 141 Potassium 3.8 Chloride 109 H Carbon Dioxide 27 Anion Gap 5 L BUN 21.1 H Creatinine 0.7 Est GFR (CKD-EPI)AfAm 94.84 Est GFR (CKD-EPI)NonAf 81.83 Random Glucose 105 Calcium 8.8 Phosphorus 3.4 Magnesium 2.1 Troponin I < 0.02 HOSPITAL COURSE: Date of Admission:06/11/20 80 year old female patient with past medical history that includes HTN, DM, HLD, CAD s/p LORENZO, Subclavian steal syndrome s/p carotid bypass, Buergers Disease, PAD, who presented to the ED with chest pressure that radiated up to her chin that began at around 8:00AM while sitting at home and resolved by the time she arrived to the hospital. The patient was also here previously on 06/09/20 for chest pressure that self-resolved after about 10 minutes. During this current admission, ECG did not show ST-elevations and troponins were negative x2. The p atient then did an inpatient nuclear stress test here, which showed normal myocardial perfusion. The patient was instructed to follow up with the Corrections Counselor Dr. Colón and the patient was discharged. Date of Discharge: 06/12/20 Minutes to complete discharge: 43 Discharge Summary Problems reviewed: Yes Reason For Visit: CORONARY ARTERY DISEASE STATUS POST PLACEMENT OF Current Active Problems S/P right coronary artery (RCA) stent placement (Chronic) Condition: Improved - Instructions Diet, Activity, Other Instructions: You were admitted to the hospital due chest pain. While at the hospital, you were evaluated with blood work, lab work, and imaging including a stress test for your heart. Your chest pain had self resolved while in the hospital. Your stress test did not show any abnormalities with your he art. Therefore, there is no further intervention necessary at this time. Imaging Findings Your stress test at the hospital did not show any problems with your heart. Please follow up with the Corrections Counselor, Dr. Corley within 1 week for further evaluation. Medications Please continue all of your medications as prescribed. Please START taking Aspirin 81mg daily by mouth Please START taking Amlodipine 2.5mg daily by mouth Follow ups Please follow up with the Corrections Counselor Dr. Cristobal Colón ( ) within 1 week. Please follow up with your primary care physician Dr. Carlos Rosas within 1 week. If you experience any worsening symptoms, chest pain, difficulty breathing, abdominal pain, or any worsening of your condition, come back to the emergency room. Referrals: Carlos Rosas MD [Staff Physician] - 1 Week Cristobal Colón MD [Primary Care Provider] - 1 Week Disposition: HOME - Home Medications Comprehensive Discharge Medication List: Ambulatory Orders Atorvastatin Calcium 80 mg PO DAILY tablet 12/14/16 Carvedilol 12.5 mg PO BID #180 tablet 12/14/16 Clopidogrel Bisulfate [Plavix] 75 mg PO DAILY 06/09/20 Donepezil HCl [Aricept -] 10 mg PO DAILY 06/11/20 Ezetimibe [Zetia] 10 mg PO DAILY 06/11/20 Quetiapine Fumarate [Seroquel -] 25 mg PO HS PRN 06/11/20 Amlodipine Besylate [Norvasc -] 2.5 mg PO DAILY 30 Days #15 tablet 06/12/20 Aspirin [ASA -] 81 mg PO DAILY #30 tab.chew 06/12/20 This patient is new to me today: No Emergency Visit: Yes ED Registration Date: 06/11/20 Care time: The patient presented to the Emergency Department on the above date and was hospitalized for further evaluation of their emergent condition. Critical Care patient: No - Discharge Referral Referred to [facility] Med P.C[facility] No ATTENDING PHYSICIAN STATEMENT I saw and evaluated the patient. I reviewed the resident's note and discussed the case with the resident. I agree with the resident's findings and plan as documented. SUBJECTIVE: OBJECTIVE: ASSESSMENT AND PLAN:
[2020-06-12 15:04] VITALS: BP 122/63; PULSE 87; TEMP 97.5
== END 2020-06-12 15:01 | disposition home or self-care (01) ==
LOC: JER 09:41 → JERBED 12:24 → UNDOADMOB 12:24 → INTOOBSV 12:48 → OBSVTOIN 12:48 → JERBED 16:44
PROVIDERS: ADMIT Internal Medicine; ATTEND Student in an Organized Health Care Education/Training Program
PROC: 3E023GC Introduction of Other Therapeutic Substance into Muscle, Percutaneous Approach (ICD-10-PCS; principal; 2020-06-11)
PROC: 3E033GC Introduction of Other Therapeutic Substance into Peripheral Vein, Percutaneous Approach (ICD-10-PCS; 2020-06-11)
DX: R07.9 Chest pain, unspecified (principal); R07.2 Precordial pain; I25.110 Atherosclerotic heart disease of native coronary artery with unstable angina pectoris; E11.9 Type 2 diabetes mellitus without complications; E78.5 Hyperlipidemia, unspecified; I25.2 Old myocardial infarction; Z95.5 Presence of coronary angioplasty implant and graft; I11.9 Hypertensive heart disease without heart failure; I77.89 Other specified disorders of arteries and arterioles; Z98.62 Peripheral vascular angioplasty status; K21.9 Gastro-esophageal reflux disease without esophagitis; Z86.73 Personal history of transient ischemic attack (TIA), and cerebral infarction without residual deficits; I73.1 Thromboangiitis obliterans [Buerger's disease]; F03.90 Unspecified dementia, unspecified severity, without behavioral disturbance, psychotic disturbance, mood disturbance, and anxiety; Z87.891 Personal history of nicotine dependence
CPT/HCPCS: 36415; 71045-TC-FY; 78452-TC; 80048; 80053; 82550; 83735; 84100; 84484; 85025; 85610; 85730; 93005; 93010; 93017; 96372; 96374; 99285-25; A9502; C1887; G0378; J2785